=== PATIENT | male | born 1975 ===

== ENCOUNTER 2017-03-01 06:00 | Observation (INO) | payer OTHER ==
[2017-03-01 09:03] LABS: RBC URINE < 1 /hpf (0-3); URINE BACTERIA RARE (<OCC); URINE BILIRUBIN NEGATIVE (NEGATIVE); URINE BLOOD NEGATIVE (NEGATIVE); URINE COLOR Yellow (YELLOW); URINE GLUCOSE (UA) NORMAL (Normal); URINE KETONE TRACE mg/dL (NEGATIVE); URINE LEUKOCYTE ESTERASE NEG Leu/uL (Negative); URINE PROTEIN NEGATIVE (NEGATIVE); WBC URINE < 1 /hpf (0-5)
[2017-03-01 09:40] LABS: BASO # 0.1 K/uL (0.0-0.2); BASO % 1.1 % (0.0-2.0); EOS # 0.2 K/uL (0.0-0.7); EOS % 4.5 % (0.0-4.0); HEMATOCRIT 38.1 % (35.0-51.0); LYMPH # 1.1 K/uL (1.0-4.3); LYMPH % 21.2 % (20.0-40.0); MEAN CELL VOLUME 90.7 fL (80.0-94.0); MEAN CORPUSCULAR HEMOGLOBIN 30.1 pg (27.0-31.0); MEAN CORPUSCULAR HGB CONC 33.2 g/dL (33.0-37.0); MEAN PLATELET VOLUME 8.8 fL (7.2-11.7); MONO # 0.5 K/uL (0.0-0.8); MONO % 9.7 % (0.0-10.0); WHITE BLOOD COUNT 5.3 K/uL (4.8-10.8)
[2017-03-01 09:44] LABS: CHLORIDE 102 mmol/L (98-107); SODIUM 137 mmol/L (132-148)
[2017-03-01 09:45] LABS: POTASSIUM 4.4 mmol/L (3.6-5.2)
[2017-03-01 09:47] LABS: ALKALINE PHOSPHATASE 72 U/L (38-126); AST/SGOT 27 U/L (17-59); BILIRUBIN,TOTAL 0.7 mg/dL (0.2-1.3); BLOOD UREA NITROGEN 14 mg/dL (9-20); CARBON DIOXIDE 27 mmol/L (22-30); GFR AFRICAN-AMERICAN > 60; TOTAL PROTEIN 7.2 g/dL (6.3-8.3)
[2017-03-01 09:48] LABS: ALT/SGPT 39 U/L (21-72); CALCIUM 8.5 mg/dl (8.6-10.4); GLUCOSE,RANDOM 91 mg/dL (75-110)
--- NOTE | 2017-03-01 11:11 | C.PDOC ---
History Of Present Illness Patient is a 41 y/o male, homeless, that presents to the ED for evaluation of redness, and swelling to bilateral lower extremities. Patient states that he didn't get a chance to lay down and elevate his legs for the last 7-8 days. Otherwise, denies any sensory changes, extremity weakness/numbness, fever, chills, or any other associated symptoms at this time. Time Seen by Provider: 03/01/17 07:43 Chief Complaint (Nursing): Lower Extremity Problem/Injury History Per: Patient History/Exam Limitations: no limitations Onset/Duration Of Symptoms: Days Current Symptoms Are (Timing): Still Present Severity: None Pain Scale Rating Of: 0 Recent travel outside of the [place]: No Additional History Per: Patient Past Medical History Reviewed: Historical Data, Nursing Documentation, Vital Signs Vital Signs: Last Vital Signs Temp 98.1 F 03/01/17 15:00 Pulse 83 03/01/17 15:00 Resp 20 03/01/17 15:00 BP 154/83 H 03/01/17 16:30 Pulse Ox 97 03/01/17 15:00 Family History: States: No Known Family Hx - Social History Hx Alcohol Use: No Hx Substance Use: No Review Of Systems Except As Marked, All Systems Reviewed And Found Negative. Constitutional: Negative for: Fever, Chills Cardiovascular: Negative for: Chest Pain, Palpitations Respiratory: Negative for: Shortness of Breath Musculoskeletal: Positive for: Leg Pain (bilateral ) Neurological: Negative for: Weakness, Numbness Physical Exam - Physical Exam Appears: Non-toxic, No Acute Distress Skin: Warm, Dry, Other (erythema to bilateral lower extremities) Head: Atraumatic, Normacephalic Eye(s): bilateral: Normal Inspection, EOMI Neck: Normal ROM, Supple Chest: Symmetrical, No Tenderness Cardiovascular: Rhythm Regular, No Murmur Respiratory: Normal Breath Sounds, No Rales, No Rhonchi, No Wheezing Gastrointestinal/Abdominal: Soft, No Tenderness Extremity: Normal ROM, No Tenderness, Pedal Edema (3+ bilateral), No Calf Tenderness, Capillary Refill (< 2 sec.), No Deformity Pulses: Left Dorsalis Pedis: Normal, Right Dorsalis Pedis: Normal Neurological/Psych: Oriented x3, Normal Speech, Normal Cognition, Normal Motor, Normal Sensation ED Course And Treatment - Laboratory Results Result Diagrams: 03/01/17 09:34 03/01/17 09:34 O2 Sat by Pulse Oximetry: 99 (on RA) Pulse Ox Interpretation: Normal Progress Note: Labs, CXR, venous duplex scan of lower extremities ordered and reviewed. venous duplex was inconclusive due to extreme swelling. Case was d/w Hospitalist who accepted patient M/S for observation. 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 - Scribe Statement The provider has reviewed the documentation as recorded by the Scribe Petrona Cortes All medical record entries made by the Hilaryibgarret were at my direction and personally dictated by me. I have reviewed the chart and agree that the record accurately reflects my personal performance of the history, physical exam, medical decision making, and the department course for this patient. I have also personally directed, reviewed, and agree with the discharge instructions and disposition. Decision To Admit - Pt Status Changed To: Hospital Disposition Of: Observation - . Bed Request Type: Regular Admitting Physician: Lucio Fairbanks Patient Diagnosis: Lower extremity edema
--- NOTE | 2017-03-01 12:17 | RAD ---
PROCEDURE: CHEST RADIOGRAPH, 1 VIEW HISTORY: Lower extremity edema COMPARISON: None available. FINDINGS: LUNGS: Mild venous congestion. Patchy bibasilar airspace opacities. Right hilar prominence. PLEURA: No pneumothorax or pleural fluid seen. CARDIOVASCULAR: Normal. OSSEOUS STRUCTURES: No significant abnormalities. VISUALIZED UPPER ABDOMEN: Normal. OTHER FINDINGS: None. IMPRESSION: Mild venous congestion. Patchy bibasilar airspace opacities. Right hilar prominence.
--- NOTE | 2017-03-01 13:28 | VASCLAB ---
PROCEDURE: Lower Extremity Venous Duplex Exam. HISTORY: Swelling PRIORS: None. TECHNIQUE: Bilateral common femoral, femoral, popliteal and posterior tibial, peroneal and great saphenous veins were evaluated. Flow was assessed with color Doppler, compressibility, assessment of phasic flow and augmentation response. Report prepared by JAIME Eagle FINDINGS: RIGHT: 1. Common Femoral Vein: 1.1. Compressibility - Fully compressible: Thrombus - None : Flow - Phasic: Augmentation -Normal: Reflux - None. 2. Femoral Vein: 2.1. Compressibility - Fully compressible: Thrombus - None : Flow - Phasic: Augmentation -Normal: Reflux - None. 3. Popliteal Vein: 3.1. Compressibility - Fully compressible: Thrombus - None : Flow - Phasic: Augmentation -Normal: Reflux - None. 4. Great Saphenous Vein: 4.1. Compressibility - Fully compressible: Thrombus - None: Flow - Phasic: Augmentation - Normal: Reflux - None. LEFT: 1. Common Femoral Vein: 1.1. Compressibility - Fully compressible: Thrombus - None: Flow - Phasic: Augmentation -Normal: Reflux - None. 2. Femoral Vein: 2.1. Compressibility - Fully compressible: Thrombus - None: Flow - Phasic: Augmentation -Normal: Reflux - None. 3. Popliteal Vein: 3.1. Compressibility - Fully compressible: Thrombus - None : Flow - Phasic: Augmentation -Normal: Reflux - None. 4. Great Saphenous Vein: 4.1. Compressibility - Fully compressible: Thrombus - None: Flow - Phasic: Augmentation - Normal: Reflux - None. OTHER FINDINGS: Technically difficult exam, due to patient large body habitus and extremity swelling. IMPRESSION: Right: No evidence of deep or superficial vein thrombosis of the right lower extremity, for the above mentioned veins. Normal valve function noted of the right side. Left: No evidence of deep or superficial vein thrombosis of the left lower extremity, for the above mentioned veins. Normal valve function noted of the left side.
--- NOTE | 2017-03-01 14:06 | CP.PCM.HP ---
History of Present Illness - History of Present Illness History of Present Illness: CC: "my legs are swollen" HPI: Patient is a 41 year old male with PMHx of morbid obesity who presented to the ED with complaint of 1 week of bilateral lower extremity edema and redness. Patient noticed one week ago that his legs started to become swollen and erythematous. Patient also complains of dry skin and itching of his legs. Per pt the swelling began in both legs at the same time. Patient complains of discomfort in his lower legs due to the swelling but denies pain. Patient states that he is currently homeless and "lost everything" one month ago but patient would not specify what events happened. Per patient, he is living on the streets and has been sitting for the past 8 days. Patient has not been able to lay down or stretch his legs. Patient is normally ambulatory and states that he walks slowly without assistance. Patient has not seen a PMD in many years and does not take any medications. Patient denies history of heart disease or diabetes and states that he has never been hospitalized for this problem in the past. Denies fever, chills, nausea, vomiting, chest pain, shortness of breath, recent illness, cough, calf pain, palpitations, dizziness, headache, change in vision, focal weakness, back pain and recent travel. PMD: none Meds: none PMHx: morbid obesity Surgical Hx: left broken elbow repair (30 years ago) Social Hx: Denies EtOH use; smokes tobacco 1/2 ppd for 25 years; Denies illicit drug use. Currently homeless and unemployed. Family Hx: Reviewed and non-contributory Allergies: No known drug allergies Present on Admission - Present on Admission Any Indicators Present on Admission: No Review of Systems - Constitutional Constitutional: As Per HPI. absent: Chills - EENT Eyes: As Per HPI. absent: Blurred Vision, Change in Vision Ears: As Per HPI. absent: Dizziness Nose/Mouth/Throat: As Per HPI. absent: Sore Throat - Cardiovascular Cardiovascular: As Per HPI, Leg Edema. absent: Chest Pain, Dyspnea, Dyspnea on Exertion, Irregular Heart Rhythm, Lightheadedness, Palpitations - Respiratory Respiratory: As Per HPI. absent: Cough, Dyspnea, Hemoptysis, Chest Congestion - Gastrointestinal Gastrointestinal: As Per HPI. absent: Constipation, Diarrhea, Nausea, Vomiting - Genitourinary Genitourinary: As Per HPI. absent: Difficulty Urinating, Dysuria - Musculoskeletal Musculoskeletal: As Per HPI. absent: Abnormal Gait, Arthralgias, Back Pain, Joint Swelling, Muscle Weakness, Myalgias, Numbness, Tingling - Integumentary Integumentary: As Per HPI, Erythema, Swelling - Neurological Neurological: As Per HPI. absent: Dizziness, Numbness, Headaches, Paresthesias , Weakness - Psychiatric Psychiatric: As Per HPI. absent: Anxiety, Depression - Endocrine Endocrine: As Per HPI. absent: Change in Body Appearance Past Patient History - Past Social History Smoking Status: Light Smoker < 10 Cigarettes Daily - PSYCHIATRIC Hx Substance Use: No - SURGICAL HISTORY Hx Surgeries: Yes Hx Musculoskeletal Surgery: Yes (left arm) Meds Allergies/Adverse Reactions: Allergies Allergy/AdvReac Type Severity Reaction Status Date / Time No Known Allergies Allergy Verified 03/01/17 06:19 Physical Exam - Constitutional Appears: Non-toxic, No Acute Distress - Head Exam Head Exam: ATRAUMATIC, NORMOCEPHALIC - Eye Exam Eye Exam: EOMI, Normal appearance, PERRL Pupil Exam: NORMAL ACCOMODATION - ENT Exam ENT Exam: Mucous Membranes Moist - Neck Exam Neck exam: Positive for: Normal Inspection Additional comments: No JVD - Respiratory Exam Respiratory Exam: Clear to Auscultation Bilateral, Wheezes (mild late expiratory wheeze throughout lung bases ). absent: Rhonchi, Respiratory Distress - Cardiovascular Exam Cardiovascular Exam: REGULAR RHYTHM, +S1, +S2 - GI/Abdominal Exam GI & Abdominal Exam: Normal Bowel Sounds, Soft. absent: Firm, Guarding, Rigid, Tenderness Additional comments: central obesity - Extremities Exam Extremities exam: Positive for: full ROM, pedal edema (Bilateral 1+ pitting edema from ankles to shins), pedal pulses present (difficult to palpate due to swelling and obesity ). Negative for: calf tenderness, tenderness Additional comments: see skin exam - Neurological Exam Neurological exam: Alert, CN II-XII Intact, Oriented x3, Reflexes Normal - Psychiatric Exam Psychiatric exam: Normal Affect, Normal Mood - Skin Skin Exam: Dry, Intact, Warm Additional comments: Bilateral lower extremities- erythematous skin changes from ankle to upper shins and behind calves, skin hot to touch, no open wounds or drainage, skin dry , small domed papule on left lateral luong Results - Vital Signs Recent Vital Signs: Last Vital Signs Temp 98.0 F 07/06/17 09:40 Pulse 81 03/01/17 12:28 Resp 13 03/01/17 12:28 BP 155/94 H 03/01/17 12:28 Pulse Ox 98 03/01/17 12:28 - Labs Result Diagrams: 03/01/17 09:34 03/01/17 09:34 Assessment & Plan - Assessment and Plan (Free Text) Assessment: 1. Venous stasis dermatitis Wound care consulted- will f/u recommendations Apply A&E f/u blood culture No leukocytosis or sign of infection 2. Bilateral LE edema LE Venous dopplers showed no abnormal findings; however, tech was unable to image bilateral calf veins due to swelling. f/u ECHO CXR- Mild venous congestion. Patchy bibasilar airspace opacities. Start Lasix 40mg IV BID Monitor I/Os Motrin 400mg PO q6h prn mild pain 3. Tobacco use Smoking cessation counseling 4. 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
[2017-03-01 16:07] VITALS: RESP 20
[2017-03-01] MEDS: metOLazone 5 MG TAB PO SCH (17:52)
[2017-03-01] MEDS: Vitamins A & D Oint UD Foilpak TOP SCH (17:53)
[2017-03-02] MEDS: metOLazone 5 MG TAB PO SCH ×4 (00:18→17:17)
[2017-03-02 07:46] LABS: BASO % 0.9 % (0.0-2.0); EOS # 0.2 K/uL (0.0-0.7); EOS % 4.8 % (0.0-4.0); HEMATOCRIT 37.7 % (35.0-51.0); LYMPH # 1.2 K/uL (1.0-4.3); MEAN CELL VOLUME 89.4 fL (80.0-94.0); MEAN CORPUSCULAR HEMOGLOBIN 30.2 pg (27.0-31.0); MEAN CORPUSCULAR HGB CONC 33.8 g/dL (33.0-37.0); MEAN PLATELET VOLUME 8.6 fL (7.2-11.7); MONO # 0.4 K/uL (0.0-0.8); MONO % 9.1 % (0.0-10.0); NRBC % 0.1 % (0.0-2.0); RED CELL DISTRIBUTION WIDTH 13.7 % (11.5-14.5); WHITE BLOOD COUNT 4.3 K/uL (4.8-10.8)
[2017-03-02 08:09] LABS: CHLORIDE 101 mmol/L (98-107); POTASSIUM 3.9 mmol/L (3.6-5.2); SODIUM 137 mmol/L (132-148)
[2017-03-02 08:11] LABS: CHOLESTEROL 112 mg/dL (0-199); GFR AFRICAN-AMERICAN > 60
[2017-03-02 08:12] LABS: ALKALINE PHOSPHATASE 69 U/L (38-126); ALT/SGPT 28 U/L (21-72); AST/SGOT 24 U/L (17-59); BILIRUBIN,TOTAL 0.8 mg/dL (0.2-1.3); BLOOD UREA NITROGEN 13 mg/dL (9-20); CARBON DIOXIDE 29 mmol/L (22-30); GLUCOSE,RANDOM 96 mg/dL (75-110); TOTAL PROTEIN 6.8 g/dL (6.3-8.3)
[2017-03-02] MEDS: Vitamins A & D Oint UD Foilpak TOP SCH (11:26)
[2017-03-02] MEDS: Enoxaparin 40 mg Syringe SC SCH (11:26)
[2017-03-02] MEDS: Pantoprazole 40 mg EC Tab PO SCH (11:27)
--- NOTE | 2017-03-02 16:16 | CP.PCM.PN ---
<Faith Youngblood - Last Filed: 03/02/17 19:48> Subjective - Date & Time of Evaluation Date of Evaluation: 03/02/17 Time of Evaluation: 07:45 - Subjective Subjective: PGY1- Medicine Note- Dr. De La Cruz's Service Patient seen and examined at bedside today with the complaint of headaches. Headache is a halfway issue, is intermittent, currently 10/10 pain confined to the forehead and denies seeing flashing lights. Complains of generalized fatigue. Patient is able to urinate, has bowel movements. Denies chest pain, palpitations, shortness of breath, cough, congestion, vision and hearing changes , tinnitus. Denies any other complaints. Objective - Vital Signs/Intake and Output Vital Signs (last 24 hours): Temp Pulse Resp BP Pulse Ox 98.3 F 89 20 150/86 97 03/01/17 23:10 03/01/17 23:10 03/01/17 23:10 03/02/17 08:14 03/01/17 23:10 Intake and Output: 03/02/17 03/02/17 06:59 18:59 Intake Total 300 840 Output Total 400 Balance 300 440 - Medications Medications: Current Medications Enoxaparin Sodium (Lovenox) 40 mg SC DAILY [facility] Last Admin: 03/02/17 11:26 Dose: Not Given Furosemide (Lasix) 40 mg PO Q8H [facility] Last Admin: 03/02/17 08:14 Dose: 40 mg Ibuprofen (Motrin Tab) 400 mg PO Q6H PRN PRN Reason: Pain, Mild (1-3) Last Admin: 03/01/17 22:05 Dose: 400 mg Metolazone (Zaroxolyn) 5 mg PO Q8H [facility] Last Admin: 03/02/17 11:27 Dose: 5 mg Pantoprazole Sodium (Protonix Ec Tab) 40 mg PO DAILY [facility] Last Admin: 03/02/17 11:27 Dose: 40 mg Vitamin A (Vitamin A & D Oint Ud Foilpak) 1 ea TOP BID [facility] Last Admin: 03/02/17 11:26 Dose: 1 ea - Labs Labs: 03/02/17 07:31 03/02/17 07:31 - Constitutional Appears: Well, Non-toxic, No Acute Distress - Head Exam Head Exam: ATRAUMATIC, NORMAL INSPECTION, NORMOCEPHALIC - Eye Exam Eye Exam: EOMI, Normal appearance, PERRL - ENT Exam ENT Exam: Mucous Membranes Moist, Normal Exam - Neck Exam Neck Exam: Full ROM, Normal Inspection. absent: Lymphadenopathy - Respiratory Exam Respiratory Exam: Clear to Ausculation Bilateral, NORMAL BREATHING PATTERN. absent: Rales, Rhonchi, Wheezes, Respiratory Distress, Stridor - Cardiovascular Exam Cardiovascular Exam: REGULAR RHYTHM, RRR. absent: Murmur - GI/Abdominal Exam GI & Abdominal Exam: Soft, Normal Bowel Sounds. absent: Distended, Firm - Extremities Exam Extremities Exam: Full ROM, Pedal Edema. absent: Normal Inspection Additional comments: edematous legs from knee down. erythematous bilaterally. - Back Exam Back Exam: NORMAL INSPECTION. absent: rash noted - Neurological Exam Neurological Exam: Alert, Awake, Oriented x3 - Psychiatric Exam Psychiatric exam: Normal Affect, Normal Mood - Skin Skin Exam: Intact, Warm Additional comments: lower extremity erythema and edema, small domed papule on left lateral luong Assessment and Plan - Assessment and Plan (Free Text) Assessment: 1. Venous Stasis Dermatitis Wound care consulted - will f/u recommendations Apply A&E No leukocytosis or sign of infection. WBC 4.3L f/u blood culture 2. Bilateral Lower Extremity Edema Venous Duplex Scan Lower Extremity Artery Bilaterally[03/01]: Right - No evidence of deep or superficial thrombosis of right lower extremity for common femoral vein, femoral vein. Normal value function noted of right side. Left - No evidence of deep or superficial vein thrombosis of left lower extremity, for common femoral vein, femoral vein, popliteal vein, great saphenous vein. Normal valve function noted on left side CXR [03/01]: Mild venous congestion. Patchy bibasilar airspace opacities. Right hilar prominence. Echocardiogram [03/01]: follow up on results Lasix 40mg IV Q8h Zaroxolyn 5mg PO Q8h Monitor I/Os Motrin 400mg PO q6h prn mild pain 3. Tobacco Use Smoking cessation counseling 4. 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 - Last Filed: 03/06/17 10:38> Objective - Vital Signs/Intake and Output Vital Signs (last 24 hours): Temp Pulse Resp BP Pulse Ox 98.1 F 95 H 20 124/85 95 03/06/17 08:00 03/06/17 08:00 03/06/17 08:00 03/06/17 08:35 03/06/17 08:00 Intake and Output: 03/06/17 03/06/17 06:59 18:59 Intake Total 800 Balance 800 - Medications Medications: Current Medications Calcium Acetate (Phoslo) 667 mg PO BIDCC [facility] Last Admin: 03/06/17 10:02 Dose: Not Given Enoxaparin Sodium (Lovenox) 40 mg SC DAILY [facility] Last Admin: 03/06/17 10:03 Dose: Not Given Furosemide (Lasix) 40 mg PO Q8H [facility] Last Admin: 03/06/17 08:35 Dose: Not Given Ibuprofen (Motrin Tab) 400 mg PO Q6H PRN PRN Reason: Pain, Mild (1-3) Last Admin: 03/01/17 22:05 Dose: 400 mg Metolazone (Zaroxolyn) 5 mg PO Q8H [facility] Last Admin: 03/06/17 09:30 Dose: Not Given Pantoprazole Sodium (Protonix Ec Tab) 40 mg PO DAILY [facility] Last Admin: 03/06/17 10:05 Dose: Not Given Potassium Chloride (K-Dur 20 Meq Er Tab) 20 meq PO DAILY [facility] Last Admin: 03/06/17 10:06 Dose: Not Given Vitamin A (Vitamin A & D Oint Ud Foilpak) 1 ea TOP BID [facility] Last Admin: 03/06/17 10:00 Dose: 1 ea - Labs Labs: 03/05/17 07:11 03/05/17 07:11 Attending/Attestation - Attestation I have personally seen and examined this patient.: Yes I have fully participated in the care of the patient.: Yes I have reviewed all pertinent clinical information, including history, physical exam and plan: Yes Notes (Text): 03/06/17 10:38 Agree with resident note and findings
--- NOTE | 2017-03-02 16:27 | CARD ---
APPROVED REPORT EXAM: Two-dimensional and M-mode echocardiogram with Doppler and color Doppler. Other Information Quality : GoodRhythm : NSR RISK FACTORS Obesity M-Mode DIMENSIONS RVDd1.65 (2.1-3.2cm)Left Atrium (MM)4.25 (2.5-4.0cm) IVSd1.21 (0.7-1.1cm)Aortic Root3.60 (2.2-3.7cm) LVDd5.94 (4.0-5.6cm)Aortic Cusp Exc.1.21 (1.5-2.0cm) PWd1.21 (0.7-1.1cm)FS (%) 36 % LVDs3.77 (2.0-3.8cm)LVEF (%)65 (>50%) Mitral Valve MV E Vklmwike01.9cm/sMV A Ucnbvtei47.9cm/sE/A ratio1.3 TDI E/Lateral E'0.0E/Medial E'0.0 Tricuspid Valve TR Peak [id number]/sTR Peak [id number] LEFT VENTRICLE The left ventricle is normal size. There is normal left ventricular wall thickness. The left ventricular function is normal. The left ventricular ejection fraction is within the normal range. There is normal LV segmental wall motion. The left ventricular diastolic function is normal. RIGHT VENTRICLE The right ventricle is normal size. There is normal right ventricular wall thickness. Systolic function is mildly reduced. ATRIA The left atrium is borderline dilated. The right atrium size is normal. The right atrium is borderline dilated. AORTIC VALVE The aortic valve is normal in structure. No aortic regurgitation is present. MITRAL VALVE The mitral valve is normal in structure. GREAT VESSELS The aortic root is normal in size. <Conclusion> Poor Echo window The left ventricle is normal size. There is normal left ventricular wall thickness. The left ventricular function is normal. The left ventricular ejection fraction is within the normal range. There is normal LV segmental wall motion. The left ventricular diastolic function is normal.
[2017-03-03] MEDS: Vitamins A & D Oint UD Foilpak TOP SCH ×2 (09:42→18:12)
[2017-03-03] MEDS: Enoxaparin 40 mg Syringe SC SCH (09:43)
[2017-03-03] MEDS: Pantoprazole 40 mg EC Tab PO SCH (09:44)
[2017-03-03] MEDS: metOLazone 5 MG TAB PO SCH ×2 (09:46→17:30)
--- NOTE | 2017-03-03 14:26 | CP.PCM.PN ---
<Faith Youngblood - Last Filed: 03/03/17 18:44> Subjective - Date & Time of Evaluation Date of Evaluation: 03/03/17 Time of Evaluation: 07:30 - Subjective Subjective: PGY1- Medicine Note- Dr. De La Cruz's Service Patient is seen and examined at bedside and in no acute distress. Patient complains of some cramping in both legs. Patient is able to urinate, has normal bowel movements. Denies chest pain, palpitations, shortness of breath, cough, congestion, vision and hearing changes, tinnitus. Denies any other complaints. Objective - Vital Signs/Intake and Output Vital Signs (last 24 hours): Temp Pulse Resp BP Pulse Ox 98.1 F 74 20 126/72 95 03/03/17 00:13 03/03/17 00:13 03/03/17 00:13 03/03/17 08:30 03/03/17 00:13 - Medications Medications: Current Medications Enoxaparin Sodium (Lovenox) 40 mg SC DAILY [facility] Last Admin: 03/03/17 09:43 Dose: 40 mg Furosemide (Lasix) 40 mg PO Q8H [facility] Last Admin: 03/03/17 08:30 Dose: 40 mg Ibuprofen (Motrin Tab) 400 mg PO Q6H PRN PRN Reason: Pain, Mild (1-3) Last Admin: 03/01/17 22:05 Dose: 400 mg Metolazone (Zaroxolyn) 5 mg PO Q8H [facility] Last Admin: 03/03/17 09:46 Dose: 5 mg Pantoprazole Sodium (Protonix Ec Tab) 40 mg PO DAILY [facility] Last Admin: 03/03/17 09:44 Dose: 40 mg Vitamin A (Vitamin A & D Oint Ud Foilpak) 1 ea TOP BID [facility] Last Admin: 03/03/17 09:42 Dose: 1 ea - Constitutional Appears: Well, Non-toxic, No Acute Distress - Head Exam Head Exam: ATRAUMATIC, NORMAL INSPECTION, NORMOCEPHALIC - Eye Exam Eye Exam: EOMI, Normal appearance, PERRL - ENT Exam ENT Exam: Mucous Membranes Moist, Normal Exam - Neck Exam Neck Exam: Full ROM, Normal Inspection. absent: Lymphadenopathy - Respiratory Exam Respiratory Exam: Clear to Ausculation Bilateral, NORMAL BREATHING PATTERN. absent: Rales, Rhonchi, Wheezes, Respiratory Distress, Stridor - Cardiovascular Exam Cardiovascular Exam: REGULAR RHYTHM, RRR, +S1, +S2. absent: Murmur - GI/Abdominal Exam GI & Abdominal Exam: Soft, Normal Bowel Sounds. absent: Distended, Firm, Guarding, Rigid, Tenderness - Extremities Exam Extremities Exam: Pedal Edema. absent: Normal Inspection Additional comments: edema from knee down is decreasing - Back Exam Back Exam: NORMAL INSPECTION - Neurological Exam Neurological Exam: Alert, Awake, Oriented x3 - Psychiatric Exam Psychiatric exam: Normal Affect, Normal Mood - Skin Skin Exam: Erythema, Intact, Warm Additional comments: erythematous lower extremities, b/l edema of legs from knees down Assessment and Plan - Assessment and Plan (Free Text) Assessment: 1. Venous Stasis Dermatitis Wound care consulted - will f/u recommendations Apply A&E No leukocytosis or sign of infection. WBC 4.3L f/u blood culture - pending, no growth after 24 hours 2. Bilateral Lower Extremity Edema Venous Duplex Scan Lower Extremity Artery Bilaterally[03/01]: Right - No evidence of deep or superficial thrombosis of right lower extremity for common femoral vein, femoral vein. Normal value function noted of right side. Left - No evidence of deep or superficial vein thrombosis of left lower extremity, for common femoral vein, femoral vein, popliteal vein, great saphenous vein. Normal valve function noted on left side CXR [03/01]: Mild venous congestion. Patchy bibasilar airspace opacities. Right hilar prominence. Echocardiogram [03/01]: normal size and left ventricular function, normal ejection fraction Lasix 40mg IV Q8h Zaroxolyn 5mg PO Q8h Monitor I/Os Motrin 400mg PO q6h prn mild pain Patient was 494 lbs on 03/01, 480 lbs on 03/03 3. Hyperphosphatemia Phoslo 667mg BIDCC monitor phosphorous 3. Tobacco Use Smoking cessation counseling 4. 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 - Last Filed: 03/06/17 10:42> Objective - Vital Signs/Intake and Output Vital Signs (last 24 hours): Temp Pulse Resp BP Pulse Ox 98.1 F 95 H 20 124/85 95 03/06/17 08:00 03/06/17 08:00 03/06/17 08:00 03/06/17 08:35 03/06/17 08:00 Intake and Output: 03/06/17 03/06/17 06:59 18:59 Intake Total 800 Balance 800 - Medications Medications: Current Medications Calcium Acetate (Phoslo) 667 mg PO BIDCC [facility] Last Admin: 03/06/17 10:02 Dose: Not Given Enoxaparin Sodium (Lovenox) 40 mg SC DAILY [facility] Last Admin: 03/06/17 10:03 Dose: Not Given Furosemide (Lasix) 40 mg PO Q8H [facility] Last Admin: 03/06/17 08:35 Dose: Not Given Ibuprofen (Motrin Tab) 400 mg PO Q6H PRN PRN Reason: Pain, Mild (1-3) Last Admin: 03/01/17 22:05 Dose: 400 mg Metolazone (Zaroxolyn) 5 mg PO Q8H [facility] Last Admin: 03/06/17 09:30 Dose: Not Given Pantoprazole Sodium (Protonix Ec Tab) 40 mg PO DAILY [facility] Last Admin: 03/06/17 10:05 Dose: Not Given Potassium Chloride (K-Dur 20 Meq Er Tab) 20 meq PO DAILY [facility] Last Admin: 03/06/17 10:06 Dose: Not Given Vitamin A (Vitamin A & D Oint Ud Foilpak) 1 ea TOP BID [facility] Last Admin: 03/06/17 10:00 Dose: 1 ea - Labs Labs: 03/05/17 07:11 03/05/17 07:11 Attending/Attestation - Attestation I have personally seen and examined this patient.: Yes I have fully participated in the care of the patient.: Yes I have reviewed all pertinent clinical information, including history, physical exam and plan: Yes Notes (Text): 03/06/17 10:42 Agree with resident note and findings
[2017-03-03 17:08] LABS: BASO % 0.7 % (0.0-2.0); EOS # 0.2 K/uL (0.0-0.7); EOS % 3.1 % (0.0-4.0); HEMATOCRIT 44.2 % (35.0-51.0); LYMPH # 1.3 K/uL (1.0-4.3); LYMPH % 27.6 % (20.0-40.0); MEAN CELL VOLUME 89.5 fL (80.0-94.0); MEAN CORPUSCULAR HEMOGLOBIN 29.8 pg (27.0-31.0); MEAN CORPUSCULAR HGB CONC 33.3 g/dL (33.0-37.0); MEAN PLATELET VOLUME 8.7 fL (7.2-11.7); MONO # 0.5 K/uL (0.0-0.8); MONO % 9.5 % (0.0-10.0); RED CELL DISTRIBUTION WIDTH 13.3 % (11.5-14.5); WHITE BLOOD COUNT 4.9 K/uL (4.8-10.8)
[2017-03-03 17:18] LABS: CHLORIDE 92 mmol/L (98-107)
[2017-03-03 17:19] LABS: POTASSIUM 3.8 mmol/L (3.6-5.2); SODIUM 138 mmol/L (132-148)
[2017-03-03 17:21] LABS: BILIRUBIN,TOTAL 0.7 mg/dL (0.2-1.3); CARBON DIOXIDE 36 mmol/L (22-30); GFR AFRICAN-AMERICAN > 60
[2017-03-03 17:22] LABS: ALKALINE PHOSPHATASE 74 U/L (38-126); ALT/SGPT 34 U/L (21-72); AST/SGOT 28 U/L (17-59); BLOOD UREA NITROGEN 19 mg/dL (9-20); CALCIUM 9.8 mg/dl (8.6-10.4); GLUCOSE,RANDOM 98 mg/dL (75-110); MAGNESIUM 1.7 mg/dL (1.6-2.3); PHOSPHOROUS 6.3 mg/dL (2.5-4.5); TOTAL PROTEIN 7.9 g/dL (6.3-8.3)
[2017-03-04] MEDS: metOLazone 5 MG TAB PO SCH ×3 (02:26→18:55)
[2017-03-04 07:53] LABS: BASO # 0.1 K/uL (0.0-0.2); BASO % 1.1 % (0.0-2.0); EOS # 0.1 K/uL (0.0-0.7); EOS % 2.4 % (0.0-4.0); HEMATOCRIT 48.8 % (35.0-51.0); LYMPH # 1.2 K/uL (1.0-4.3); LYMPH % 23.1 % (20.0-40.0); MEAN CORPUSCULAR HEMOGLOBIN 29.7 pg (27.0-31.0); MEAN CORPUSCULAR HGB CONC 33.3 g/dL (33.0-37.0); MEAN PLATELET VOLUME 8.8 fL (7.2-11.7); MONO # 0.4 K/uL (0.0-0.8); NRBC % 0.2 % (0.0-2.0); RED CELL DISTRIBUTION WIDTH 13.5 % (11.5-14.5); WHITE BLOOD COUNT 5.2 K/uL (4.8-10.8)
[2017-03-04 08:05] LABS: CHLORIDE 89 mmol/L (98-107); SODIUM 136 mmol/L (132-148)
[2017-03-04 08:06] LABS: POTASSIUM 3.6 mmol/L (3.6-5.2)
[2017-03-04 08:07] LABS: GFR AFRICAN-AMERICAN > 60
[2017-03-04 08:08] LABS: ALKALINE PHOSPHATASE 91 U/L (38-126); ALT/SGPT 37 U/L (21-72); AST/SGOT 35 U/L (17-59); BILIRUBIN,TOTAL 0.9 mg/dL (0.2-1.3); BLOOD UREA NITROGEN 20 mg/dL (9-20); CARBON DIOXIDE 36 mmol/L (22-30); GLUCOSE,RANDOM 107 mg/dL (75-110); TOTAL PROTEIN 8.7 g/dL (6.3-8.3)
[2017-03-04 08:09] LABS: CALCIUM 9.8 mg/dl (8.6-10.4); MAGNESIUM 1.9 mg/dL (1.6-2.3); PHOSPHOROUS 5.3 mg/dL (2.5-4.5)
[2017-03-04] MEDS: Vitamins A & D Oint UD Foilpak TOP SCH ×2 (09:01→18:00)
[2017-03-04] MEDS: Pantoprazole 40 mg EC Tab PO SCH (09:04)
[2017-03-04] MEDS: Enoxaparin 40 mg Syringe SC SCH (09:05)
--- NOTE | 2017-03-04 12:38 | CP.PCM.PN ---
<Faith Youngblood - Last Filed: 03/04/17 20:36> Subjective - Date & Time of Evaluation Date of Evaluation: 03/04/17 Time of Evaluation: 07:40 - Subjective Subjective: PGY1- Medicine Note- Dr. De La Cruz's Service Patient is seen and examined at bedside and in no acute distress. Patient was sleeping and awoken. Patient complains of pain in both legs. Patient is able to urinate, has normal bowel movements. Denies chest pain, palpitations, shortness of breath, cough, congestion, vision and hearing changes, tinnitus. Denies any other complaints. Objective - Vital Signs/Intake and Output Vital Signs (last 24 hours): Temp Pulse Resp BP Pulse Ox 97.8 F 78 20 115/63 95 03/04/17 08:00 03/04/17 08:00 03/04/17 08:00 03/04/17 08:26 03/04/17 08:00 Intake and Output: 03/04/17 03/04/17 06:59 18:59 Intake Total 1080 Output Total 400 Balance 680 - Medications Medications: Current Medic[facility] Admin: 03/04/17 08:26 Dose: 667 mg Enoxaparin Sodium (Lovenox) 40 mg SC DAILY [facility] Last Admin: 03/04/17 09:05 Dose: 40 mg Furosemide (Lasix) 40 mg PO Q8H [facility] Last Admin: 03/04/17 08:26 Dose: 40 mg Ibuprofen (Motrin Tab) 400 mg PO Q6H PRN PRN Reason: Pain, Mild (1-3) Last Admin: 03/01/17 22:05 Dose: 400 mg Metolazone (Zaroxolyn) 5 mg PO Q8H [facility] Last Admin: 03/04/17 09:05 Dose: 5 mg Pantoprazole Sodium (Protonix Ec Tab) 40 mg PO DAILY [facility] Last Admin: 03/04/17 09:04 Dose: 40 mg Vitamin A (Vitamin A & D Oint Ud Foilpak) 1 ea TOP BID [facility] Last Admin: 03/03/17 18:12 Dose: 1 ea - Labs Labs: 03/04/17 07:40 03/04/17 07:40 - Constitutional Appears: Well, Non-toxic, No Acute Distress - Head Exam Head Exam: ATRAUMATIC, NORMAL INSPECTION, NORMOCEPHALIC - Eye Exam Eye Exam: EOMI, Normal appearance, PERRL - ENT Exam ENT Exam: Mucous Membranes Moist, Normal Exam - Neck Exam Neck Exam: Full ROM, Normal Inspection. absent: Lymphadenopathy - Respiratory Exam Respiratory Exam: Clear to Ausculation Bilateral, NORMAL BREATHING PATTERN. absent: Rales, Rhonchi, Wheezes, Respiratory Distress, Stridor - Cardiovascular Exam Cardiovascular Exam: REGULAR RHYTHM, RRR, +S1, +S2. absent: Rubs, Murmur - GI/Abdominal Exam GI & Abdominal Exam: Soft, Normal Bowel Sounds. absent: Distended, Firm, Guarding, Rigid, Tenderness - Extremities Exam Extremities Exam: Full ROM, Pedal Edema, Tenderness Additional comments: lower extremity edema decreasing legs tender to the touch - Back Exam Back Exam: NORMAL INSPECTION. absent: rash noted - Neurological Exam Neurological Exam: Alert, Awake, Oriented x3 - Psychiatric Exam Psychiatric exam: Normal Affect, Normal Mood - Skin Skin Exam: Intact, Warm Additional comments: erythema on lower legs decreasing Assessment and Plan - Assessment and Plan (Free Text) Assessment: 1. Venous Stasis Dermatitis Wound care consulted - will f/u recommendations Apply A&E No leukocytosis or sign of infection. WBC 4.3L f/u blood culture - pending, no growth after 24 hours 2. Bilateral Lower Extremity Edema Venous Duplex Scan Lower Extremity Artery Bilaterally[03/01]: Right - No evidence of deep or superficial thrombosis of right lower extremity for common femoral vein, femoral vein. Normal value function noted of right side. Left - No evidence of deep or superficial vein thrombosis of left lower extremity, for common femoral vein, femoral vein, popliteal vein, great saphenous vein. Normal valve function noted on left side CXR [03/01]: Mild venous congestion. Patchy bibasilar airspace opacities. Right hilar prominence. Echocardiogram [03/01]: normal size and left ventricular function, normal ejection fraction Lasix 40mg IV Q8h Zaroxolyn 5mg PO Q8h Monitor I/Os Motrin 400mg PO q6h prn mild pain Patient was 494 lbs on 03/01, 480 lbs on 03/03 3. Hyperphosphatemia Phoslo 667mg BIDCC monitor phosphorous decreased from 6.3 to 5.3 on 03/04 3. Tobacco Use Smoking cessation counseling 4. 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 - Last Filed: 03/06/17 10:46> Objective - Vital Signs/Intake and Output Vital Signs (last 24 hours): Temp Pulse Resp BP Pulse Ox 98.1 F 95 H 20 124/85 95 03/06/17 08:00 03/06/17 08:00 03/06/17 08:00 03/06/17 08:35 03/06/17 08:00 Intake and Output: 03/06/17 03/06/17 06:59 18:59 Intake Total 800 Balance 800 - Medications Medications: Current Medications Calcium Acetate (Phoslo) 667 mg PO BIDCC [facility] Last Admin: 03/06/17 10:02 Dose: Not Given Enoxaparin Sodium (Lovenox) 40 mg SC DAILY [facility] Last Admin: 03/06/17 10:03 Dose: Not Given Furosemide (Lasix) 40 mg PO Q8H [facility] Last Admin: 03/06/17 08:35 Dose: Not Given Ibuprofen (Motrin Tab) 400 mg PO Q6H PRN PRN Reason: Pain, Mild (1-3) Last Admin: 03/01/17 22:05 Dose: 400 mg Metolazone (Zaroxolyn) 5 mg PO Q8H [facility] Last Admin: 03/06/17 09:30 Dose: Not Given Pantoprazole Sodium (Protonix Ec Tab) 40 mg PO DAILY [facility] Last Admin: 03/06/17 10:05 Dose: Not Given Potassium Chloride (K-Dur 20 Meq Er Tab) 20 meq PO DAILY [facility] Last Admin: 03/06/17 10:06 Dose: Not Given Vitamin A (Vitamin A & D Oint Ud Foilpak) 1 ea TOP BID [facility] Last Admin: 03/06/17 10:00 Dose: 1 ea - Labs Labs: 03/05/17 07:11 03/05/17 07:11 Attending/Attestation - Attestation I have personally seen and examined this patient.: Yes I have fully participated in the care of the patient.: Yes I have reviewed all pertinent clinical information, including history, physical exam and plan: Yes Notes (Text): 03/06/17 10:46 Agree with resident note and findings
[2017-03-05] MEDS: metOLazone 5 MG TAB PO SCH ×3 (01:04→17:31)
[2017-03-05 07:58] LABS: CHLORIDE 89 mmol/L (98-107); POTASSIUM 3.2 mmol/L (3.6-5.2); SODIUM 135 mmol/L (132-148)
[2017-03-05 08:00] LABS: AST/SGOT 36 U/L (17-59); BILIRUBIN,TOTAL 0.9 mg/dL (0.2-1.3); CARBON DIOXIDE 35 mmol/L (22-30); GFR AFRICAN-AMERICAN > 60
[2017-03-05 08:01] LABS: ALKALINE PHOSPHATASE 83 U/L (38-126); ALT/SGPT 53 U/L (21-72); BLOOD UREA NITROGEN 29 mg/dL (9-20); CALCIUM 9.6 mg/dl (8.6-10.4); GLUCOSE,RANDOM 114 mg/dL (75-110); PHOSPHOROUS 5.1 mg/dL (2.5-4.5); TOTAL PROTEIN 8.1 g/dL (6.3-8.3)
[2017-03-05 08:21] LABS: BASO % 0.8 % (0.0-2.0); EOS # 0.1 K/uL (0.0-0.7); EOS % 2.7 % (0.0-4.0); HEMATOCRIT 48.8 % (35.0-51.0); LYMPH # 1.5 K/uL (1.0-4.3); LYMPH % 27.5 % (20.0-40.0); MEAN CELL VOLUME 89.3 fL (80.0-94.0); MEAN CORPUSCULAR HEMOGLOBIN 30.3 pg (27.0-31.0); MEAN PLATELET VOLUME 9.1 fL (7.2-11.7); MONO # 0.5 K/uL (0.0-0.8); MONO % 9.9 % (0.0-10.0); RED CELL DISTRIBUTION WIDTH 13.5 % (11.5-14.5); WHITE BLOOD COUNT 5.4 K/uL (4.8-10.8)
[2017-03-05] MEDS ORDERED: Potassium Chloride 20 mEq ER Tab PO ONE ×2 (09:17→11:01)
[2017-03-05] MEDS: Pantoprazole 40 mg EC Tab PO SCH (10:30)
[2017-03-05] MEDS: Enoxaparin 40 mg Syringe SC SCH (10:30)
[2017-03-05] MEDS: Vitamins A & D Oint UD Foilpak TOP SCH ×2 (10:30→17:31)
[2017-03-05] MEDS ORDERED: Potassium Chloride 20 mEq ER Tab PO SCH (11:00)
--- NOTE | 2017-03-05 19:06 | CP.PCM.PN ---
<Faith Youngblood - Last Filed: 03/05/17 19:04> Subjective - Date & Time of Evaluation Date of Evaluation: 03/05/17 Time of Evaluation: 07:00 - Subjective Subjective: PGY1 - medicine note- Dr. De La Cruz's Service Patient was seen today at bedside in no acute distress. No overnight events. Complains of "empty" feeling in bilateral lower extremities, tenderness to palpation of bilateral calves. Admits fatigue, drowsiness, dizziness, and difficulty walking. Denied chest pain, palpitations, SOB, headache, blurry vision, dysphagia. Morning weight via bed scale is 449.7 vs 494 lbs on 03/01 Objective - Vital Signs/Intake and Output Vital Signs (last 24 hours): Temp Pulse Resp BP Pulse Ox 97.9 F 87 20 141/74 96 03/05/17 08:05 03/05/17 08:05 03/05/17 08:05 03/05/17 17:00 03/05/17 08:05 Intake and Output: 03/05/17 03/06/17 18:59 06:59 Intake Total 600 Balance 600 - Medications Medications: Current Medications Calcium Acetate (Phoslo) 667 mg PO BIDCC [facility] Last Admin: 03/05/17 17:31 Dose: 667 mg Enoxaparin Sodium (Lovenox) 40 mg SC DAILY [facility] Last Admin: 03/05/17 10:30 Dose: 40 mg Furosemide (Lasix) 40 mg PO Q8H [facility] Last Admin: 03/05/17 17:00 Dose: 40 mg Ibuprofen (Motrin Tab) 400 mg PO Q6H PRN PRN Reason: Pain, Mild (1-3) Last Admin: 03/01/17 22:05 Dose: 400 mg Metolazone (Zaroxolyn) 5 mg PO Q8H [facility] Last Admin: 03/05/17 17:31 Dose: 5 mg Pantoprazole Sodium (Protonix Ec Tab) 40 mg PO DAILY [facility] Last Admin: 03/05/17 10:30 Dose: 40 mg Vitamin A (Vitamin A & D Oint Ud Foilpak) 1 ea TOP BID [facility] Last Admin: 03/05/17 17:31 Dose: 1 ea - Labs Labs: 03/05/17 07:11 03/05/17 07:11 - Constitutional Appears: Well, Non-toxic, No Acute Distress - Head Exam Head Exam: ATRAUMATIC, NORMAL INSPECTION, NORMOCEPHALIC - Eye Exam Eye Exam: EOMI, Normal appearance, PERRL - ENT Exam ENT Exam: Mucous Membranes Moist, Normal Exam - Neck Exam Neck Exam: Full ROM, Normal Inspection. absent: Lymphadenopathy - Respiratory Exam Respiratory Exam: Clear to Ausculation Bilateral, NORMAL BREATHING PATTERN. absent: Rales, Rhonchi, Wheezes, Respiratory Distress, Stridor - Cardiovascular Exam Cardiovascular Exam: REGULAR RHYTHM, RRR. absent: Gallop, Rubs, Murmur - GI/Abdominal Exam GI & Abdominal Exam: Soft, Normal Bowel Sounds. absent: Firm, Guarding, Rigid - Extremities Exam Extremities Exam: Normal Inspection, Pedal Edema, Tenderness Additional comments: swelling in legs bilaterally decreasing erythema decreasing - Back Exam Back Exam: NORMAL INSPECTION - Neurological Exam Neurological Exam: Alert, Awake, Oriented x3 - Psychiatric Exam Psychiatric exam: Normal Affect, Normal Mood - Skin Skin Exam: Erythema, Warm Additional comments: bilateral edematous legs Assessment and Plan - Assessment and Plan (Free Text) Assessment: 1. Venous Stasis Dermatitis Wound care consulted Apply A&E No leukocytosis or sign of infection. WBC 4.3L f/u blood culture - pending, no growth after 24 hours 2. Bilateral Lower Extremity Edema Edema decreasing, patient has lost 44.3 lbs in 5 days and feels unsteady on his feet Venous Duplex Scan Lower Extremity Artery Bilaterally[03/01]: Right - No evidence of deep or superficial thrombosis of right lower extremity for common femoral vein, femoral vein. Normal value function noted of right side. Left - No evidence of deep or superficial vein thrombosis of left lower extremity, for common femoral vein, femoral vein, popliteal vein, great saphenous vein. Normal valve function noted on left side CXR [03/01]: Mild venous congestion. Patchy bibasilar airspace opacities. Right hilar prominence. Echocardiogram [03/01]: normal size and left ventricular function, normal ejection fraction Lasix 40mg IV Q8h Zaroxolyn 5mg PO Q8h Monitor I/Os Motrin 400mg PO q6h prn mild pain Patient was 494 lbs on 03/01, 480 lbs on 03/03 3. Hyperphosphatemia Phoslo 667mg BIDCC monitor phosphorous decreased from 6.3 to 5.3 to 5.1 on 03/05 4. Hypokalemia 03/05: 3.2, KDUR 40 given KDUR 20 daily 5. Tobacco Use Smoking cessation counseling 6. 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 - Last Filed: 03/06/17 10:50> Objective - Vital Signs/Intake and Output Vital Signs (last 24 hours): Temp Pulse Resp BP Pulse Ox 98.1 F 95 H 20 124/85 95 03/06/17 08:00 03/06/17 08:00 03/06/17 08:00 03/06/17 08:35 03/06/17 08:00 Intake and Output: 03/06/17 03/06/17 06:59 18:59 Intake Total 800 Balance 800 - Medications Medications: Current Medications Calcium Acetate (Phoslo) 667 mg PO BIDCC [facility] Last Admin: 03/06/17 10:02 Dose: Not Given Enoxaparin Sodium (Lovenox) 40 mg SC DAILY [facility] Last Admin: 03/06/17 10:03 Dose: Not Given Furosemide (Lasix) 40 mg PO Q8H [facility] Last Admin: 03/06/17 08:35 Dose: Not Given Ibuprofen (Motrin Tab) 400 mg PO Q6H PRN PRN Reason: Pain, Mild (1-3) Last Admin: 03/01/17 22:05 Dose: 400 mg Metolazone (Zaroxolyn) 5 mg PO Q8H [facility] Last Admin: 03/06/17 09:30 Dose: Not Given Pantoprazole Sodium (Protonix Ec Tab) 40 mg PO DAILY [facility] Last Admin: 03/06/17 10:05 Dose: Not Given Potassium Chloride (K-Dur 20 Meq Er Tab) 20 meq PO DAILY [facility] Last Admin: 03/06/17 10:06 Dose: Not Given Vitamin A (Vitamin A & D Oint Ud Foilpak) 1 ea TOP BID [facility] Last Admin: 03/06/17 10:00 Dose: 1 ea - Labs Labs: 03/05/17 07:11 03/05/17 07:11 Attending/Attestation - Attestation I have personally seen and examined this patient.: Yes I have fully participated in the care of the patient.: Yes I have reviewed all pertinent clinical information, including history, physical exam and plan: Yes Notes (Text): 03/06/17 10:50 Agree with resident note and findings
[2017-03-06 08:32] VITALS: BP 124/85; PULSE 95; TEMP 98.1; O2SAT 95
[2017-03-06] MEDS: metOLazone 5 MG TAB PO SCH (09:30)
[2017-03-06] MEDS: Pantoprazole 40 mg EC Tab PO SCH ×2 (10:00→10:05)
[2017-03-06] MEDS: Potassium Chloride 20 mEq ER Tab PO SCH ×2 (10:00→10:06)
[2017-03-06] MEDS: Vitamins A & D Oint UD Foilpak TOP SCH (10:00)
[2017-03-06] MEDS: Enoxaparin 40 mg Syringe SC SCH (10:03)
--- NOTE | 2017-03-06 15:48 | CP.PCM.DIS ---
Provider - Provider Date of Admission: 03/02/17 19:50 Attending physician: Carson De La Cruz Jr, MD Consults: Dr. De La Cruz Time Spent in preparation of Discharge (in minutes): 45 Diagnosis - Discharge Diagnosis (1) Lower extremity edema Status: Resolved Comment: please see summary for details Hospital Course - Lab Results Lab Results: Most Recent Lab Values WBC 5.4 K/uL (4.8-10.8) 03/05/17 07:11 RBC 5.46 Mil/uL (4.40-5.90) 03/05/17 07:11 Hgb 16.6 g/dL (12.0-18.0) 03/05/17 07:11 Hct 48.8 % (35.0-51.0) 03/05/17 07:11 MCV 89.3 fL (80.0-94.0) 03/05/17 07:11 MCH 30.3 pg (27.0-31.0) 03/05/17 07:11 MCHC 34.0 g/dL (33.0-37.0) 03/05/17 07:11 RDW 13.5 % (11.5-14.5) 03/05/17 07:11 Plt Count 305 K/uL (130-400) 03/05/17 07:11 MPV 9.1 fL (7.2-11.7) 03/05/17 07:11 Neut % (Auto) 59.1 % (50.0-75.0) 03/05/17 07:11 Lymph % (Auto) 27.5 % (20.0-40.0) 03/05/17 07:11 [place] % (Auto) 9.9 % (0.0-10.0) 03/05/17 07:11 Eos % (Auto) 2.7 % (0.0-4.0) 03/05/17 07:11 Baso % (Auto) 0.8 % (0.0-2.0) 03/05/17 07:11 Neut # 3.2 K/uL (1.8-7.0) 03/05/17 07:11 Lymph # 1.5 K/uL (1.0-4.3) 03/05/17 07:11 [place] # 0.5 K/uL (0.0-0.8) 03/05/17 07:11 Eos # 0.1 K/uL (0.0-0.7) 03/05/17 07:11 Baso # 0.0 K/uL (0.0-0.2) 03/05/17 07:11 Sodium 135 mmol/L (132-148) 03/05/17 07:11 Potassium 3.2 mmol/L (3.6-5.2) L 03/05/17 07:11 Chloride 89 mmol/L (98-107) L 03/05/17 07:11 Carbon Dioxide 35 mmol/L (22-30) H 03/05/17 07:11 Anion Gap 14 (10-20) 03/05/17 07:11 BUN 29 mg/dL (9-20) H 03/05/17 07:11 Creatinine 1.2 MG/DL (0.8-1.5) 03/05/17 07:11 Est GFR ( Amer) > 60 03/05/17 07:11 Est GFR (Non-Af Amer) > 60 03/05/17 07:11 Random Glucose 114 mg/dL (75-110) H 03/05/17 07:11 Calcium 9.6 mg/dl (8.6-10.4) 03/05/17 07:11 Phosphorus 5.1 mg/dL (2.5-4.5) H 03/05/17 07:11 Magnesium 2.0 mg/dL (1.6-2.3) 03/05/17 07:11 Total Bilirubin 0.9 mg/dL (0.2-1.3) 03/05/17 07:11 AST 36 U/L (17-59) 03/05/17 07:11 ALT 53 U/L (21-72) 03/05/17 07:11 Alkaline Phosphatase 83 U/L (38-126) 03/05/17 07:11 Total Protein 8.1 g/dL (6.3-8.3) 03/05/17 07:11 Albumin 4.1 g/dL (3.5-5.0) 03/05/17 07:11 Globulin 4.0 gm/dL (2.2-3.9) H 03/05/17 07:11 Albumin/Globulin Ratio 1.0 (1.0-2.1) 03/05/17 07:11 Triglycerides 67 mg/dL (0-149) 03/02/17 07:31 Cholesterol 112 mg/dL (0-199) 03/02/17 07:31 LDL Cholesterol Direct 63 mg/dL (0-129) 03/02/17 07:31 HDL Cholesterol 32 mg/dL (30-70) 03/02/17 07:31 Urine Color Yellow (YELLOW) 03/01/17 08:55 Urine Clarity Clear (Clear) 03/01/17 08:55 Urine pH 6.0 (5.0-8.0) 03/01/17 08:55 Ur Specific [place] 1.023 (1.003-1.030) 03/01/17 08:55 Urine Protein Negative mg/dL (NEGATIVE) 03/01/17 08:55 Urine Glucose (UA) Normal mg/dL (Normal) 03/01/17 08:55 Urine Ketones Trace mg/dL (NEGATIVE) 03/01/17 08:55 Urine Blood Negative (NEGATIVE) 03/01/17 08:55 Urine Nitrate Negative (NEGATIVE) 03/01/17 08:55 Urine Bilirubin Negative (NEGATIVE) 03/01/17 08:55 Urine Urobilinogen 4.0 mg/dL (0.2-1.0) 03/01/17 08:55 Ur Leukocyte Esterase Neg Jovon/uL (Negative) 03/01/17 08:55 Urine WBC (Auto) < 1 /hpf (0-5) 03/01/17 08:55 Urine RBC (Auto) < 1 /hpf (0-3) 03/01/17 08:55 Ur Squamous Epith Cells < 1 /hpf (0-5) 03/01/17 08:55 Urine Bacteria Rare (<OCC) 03/01/17 08:55 - Hospital Course Hospital Course: cc: "my legs are swollen" HPI: Patient is a 41 year old male with PMHx of morbid obesity who presented to the ED with complaint of 1 week of bilateral lower extremity edema and redness. Patient noticed one week ago that his legs started to become swollen and erythematous. Patient also complains of dry skin and itching of his legs. Per pt the swelling began in both legs at the same time. Patient complains of discomfort in his lower legs due to the swelling but denies pain. Patient states that he is currently homeless and "lost everything" one month ago but patient would not specify what events happened. Per patient, he is living on the streets and has been sitting for the past 8 days. Patient has not been able to lay down or stretch his legs. Patient is normally ambulatory and states that he walks slowly without assistance. René has not seen a PMD in many years and does not take any medications. Patient denies history of heart disease or diabetes and states that he has never been hospitalized for this problem in the past. Denies fever, chills, nausea, vomiting, chest pain, shortness of breath, recent illness, cough, calf pain, palpitations, dizziness, headache, change in vision, focal weakness, back pain and recent travel." Patient admitted to r/o CHF, DVTS. Portable chest XRay performed showed mild venous congestion, patchy bibasilar airspace opacities, right hilar prominence. Venous Doppler of bilateral lower extremities showed no evidence of deep or superficial vein thrombosis of either lower extremity for the common femoral, femoral, popliteal, and great saphenous veins; normal valve function was noted on both sides. 2D ECHO with Doppler showed poor ECHO window, normal size and wall thickness of left ventricle, normal left ventricle function, normal LVEF ( 65%), normal left ventricle segmental wall motion, normal left ventricular diastolic function. Diuresis on Lasix 40mg IV BID was started in ED, and switched to Lasix 40mg IV q8h the next day and trialed on Lasix 40mg PO q8h. Once on floor, potentiated by Metolazone 5mg PO q8h Morning weight via bed scale upon discharge is 445.3 lbs vs 494 lbs on 03/01/17 on admission. Electrolytes replenished as needed as indicated by daily labs. Motrin 400mg PO q6h prn was given for pain management. Wound care was consulted for venous stasis dermatitis. Blood culture showed no growth after 4 days with no leukocytosis or sign of infection throughout hospital stay. Smoking cessation counseling was provided for tobacco use and started on heart healthy diet per windrower operator recommendation. Patient was on Protonix 40mg PO daily and Lovenox 40mg SC daily prophylactically while in the hospital. This is a summary of the hospital course. Please see chart for full details. Discharge Exam - Head Exam Head Exam: ATRAUMATIC, NORMAL INSPECTION, NORMOCEPHALIC - Eye Exam Eye Exam: EOMI, Normal appearance, PERRL - ENT Exam ENT Exam: Mucous Membranes Moist - Neck Exam Neck exam: Full Rom, Normal Inspection - Respiratory Exam Respiratory Exam: Clear to PA & Lateral, NORMAL BREATHING PATTERN, UNREMARKABLE. absent: Rales, Rhonchi, Wheezes, Stridor - Cardiovascular Exam Cardiovascular Exam: REGULAR RHYTHM, RRR. absent: Gallop, Rubs, Systolic Murmur - GI/Abdominal Exam GI & Abdominal Exam: Normal Bowel Sounds, Soft. absent: Distended, Firm, Guarding, Tenderness - Extremities Exam Extremities exam: normal inspection, pedal edema, tenderness Additional comments: minimal lower extremity and pedal edema minimal tenderness LE b/l - Back Exam Back exam: NORMAL INSPECTION. absent: rash noted - Neurological Exam Neurological exam: Alert, Oriented x3 - Psychiatric Exam Psychiatric exam: Normal Affect, Normal Mood - Skin Skin Exam: Intact, Normal Color, Warm Discharge Plan - Discharge Medications Prescriptions: Furosemide [Lasix] 40 mg PO DAILY #30 tablet Potassium Chloride [K-Dur 20] 10 meq PO DAILY #30 tab - Follow Up Plan Condition: STABLE Disposition: HOME/ ROUTINE Instructions: Furosemide (By mouth), Potassium Chloride (By mouth), Stasis Dermatitis (DC) Additional Instructions: Patient stable for discharge as per Dr. De La Cruz. Patient to establish care with a PMD. Patient should follow up with the [facility] within one week. Patient to call Dr. De La Cruz's office with any problems . Patient to follow up with outpatient psych clinic- [facility] [phone] or [phone]. Patient to take the following medications: Lasix 40 mg once daily Kdur 10mcg once daily If symptoms return or worsen please return to ER Immediately. Referrals: Carson De La Cruz Jr., MD [Medical Doctor] -
== END 2017-03-06 16:10 | disposition home or self-care (01) ==
LOC: C.ER 06:00 → C.9E 11:29 → C.3T 12:01 → INTOOBSV 03-02 19:50 → OBSVTOIN 03-02 19:50
PROVIDERS: ADMIT Internal Medicine; ATTEND Internal Medicine
DX: I87.2 Venous insufficiency (chronic) (peripheral) (principal); E87.6 Hypokalemia; Z68.43 Body mass index [BMI] 50.0-59.9, adult; E83.39 Other disorders of phosphorus metabolism; E66.01 Morbid (severe) obesity due to excess calories; F17.210 Nicotine dependence, cigarettes, uncomplicated; Z59.0 Homelessness
CPT/HCPCS: 36415; 71010; 80053; 80061; 81001; 83735; 84100; 85025; 87040; 93306; 93970; 97116; 97161; 97165; 97530; 99285; G0378; G8978; G8979; G8980; G8987; G8988; J1650; J1940

== ENCOUNTER 2017-03-07 19:41 | Inpatient (IN) | payer OTHER ==
[2017-03-07] MEDS ORDERED: Sodium Chloride 0.9% 1,000 ML IV ONE (20:27)
--- NOTE | 2017-03-07 20:35 | C.PDOC ---
History Of Present Illness 41 y/o male presents to ED with complaints of "not feeling well" with associated cramping pain in the abdominal wall and muscles on his back pain. Patient is homeless and does not stay in a nursing home. Patient was discharged yesterday after admission for peripheral edema and stasis dermatitis. He was treated with Lasix and Potassium. The swelling in his legs improved. He had a normal cardiac work up. No other complaints at this time. Time Seen by Provider: 03/07/17 20:21 Chief Complaint (Nursing): Medical Clearance History Per: Patient History/Exam Limitations: no limitations Onset/Duration Of Symptoms: Hrs Current Symptoms Are (Timing): Still Present Past Medical History Reviewed: Historical Data, Nursing Documentation, Vital Signs Vital Signs: Last Vital Signs Temp 98.6 F 03/07/17 20:03 Pulse 98 H 03/07/17 20:03 Resp 18 03/07/17 20:03 BP 144/92 H 03/07/17 20:03 Pulse Ox 95 03/07/17 22:06 - Medical History PMH: Peripheral Edema Other PMH: Stasis dermatitis Other Surgeries: elbow surgery 30 years ago Family History: States: No Known Family Hx - Social History Hx Tobacco Use: Yes Hx Alcohol Use: No Hx Substance Use: No - Immunization History Hx Tetanus Toxoid Vaccination: No Hx Influenza Vaccination: No Hx Pneumococcal Vaccination: No Review Of Systems Except As Marked, All Systems Reviewed And Found Negative. Constitutional: Negative for: Fever, Chills Cardiovascular: Negative for: Chest Pain Gastrointestinal: Positive for: Abdominal Pain. Negative for: Nausea, Vomiting , Diarrhea Musculoskeletal: Positive for: Back Pain Skin: Negative for: Rash Physical Exam - Physical Exam Appears: Non-toxic, No Acute Distress Skin: Normal Color, Warm Head: Atraumatic, Normacephalic Oral Mucosa: Dry Neck: Normal, Normal ROM Chest: Symmetrical Cardiovascular: Rhythm Regular, No Murmur Respiratory: Normal Breath Sounds, No Rales, No Rhonchi, No Wheezing Gastrointestinal/Abdominal: Normal Exam, Bowel Sounds, Soft, No Tenderness, Other (Morbidly obese) Extremity: Pedal Edema (+1 pedal edema on lower extremities), Capillary Refill ( <2 seconds), Swelling (mild swelling of legs bilateral) Extremity: Bilateral: Atraumatic, No Pedal Edema, Normal Color And Temperature, Normal ROM Pulses: Left Carotid: Normal, Right Carotid: Normal Neurological/Psych: Oriented x3, Normal Speech, Normal Cognition, Normal Motor, Normal Sensation, Normal Reflexes ED Course And Treatment - Laboratory Results Result Diagrams: 03/07/17 21:21 03/07/17 21:21 Lab Interpretation: Abnormal (BUN 54 Cr 3.0 significantly increased compared to 2 days ago.) O2 Sat by Pulse Oximetry: 95 (RA) Pulse Ox Interpretation: Normal Reevaluation Time: 22:09 Reassessment Condition: Unchanged - Physician Consult Information Time Consulting Physician Contacted: 22:09 Physician Contacted: Carson De La Cruz Jr. Outcome Of Conversation: Patient to be readmitted for acute renal failure. Disposition - Disposition Disposition: HOSPITALIZED Disposition Time: 22:10 Condition: STABLE - POA Present On Arrival: None - Clinical Impression Clinical Impression: Acute renal failure - Scribe Statement The provider has reviewed the documentation as recorded by the Hilaryibgarret Bashir All medical record entries made by the Hilaryibgarret were at my direction and personally dictated by me. I have reviewed the chart and agree that the record accurately reflects my personal performance of the history, physical exam, medical decision making, and the department course for this patient. I have also personally directed, reviewed, and agree with the discharge instructions and disposition.
[2017-03-07 21:25] LABS: BASO # 0.1 K/uL (0.0-0.2); BASO % 0.6 % (0.0-2.0); EOS # 0.1 K/uL (0.0-0.7); EOS % 0.7 % (0.0-4.0); HEMOGLOBIN 15.6 g/dL (12.0-18.0); LYMPH # 1.4 K/uL (1.0-4.3); LYMPH % 17.1 % (20.0-40.0); MEAN CELL VOLUME 89.2 fL (80.0-94.0); MEAN CORPUSCULAR HEMOGLOBIN 29.7 pg (27.0-31.0); MEAN CORPUSCULAR HGB CONC 33.3 g/dL (33.0-37.0); MEAN PLATELET VOLUME 8.9 fL (7.2-11.7); MONO # 1.1 K/uL (0.0-0.8); MONO % 13.4 % (0.0-10.0); NEUT # 5.6 K/uL (1.8-7.0); NEUT % 68.2 % (50.0-75.0); NRBC % 0.1 % (0.0-2.0); RBC 5.26 Mil/uL (4.40-5.90); RED CELL DISTRIBUTION WIDTH 13.3 % (11.5-14.5); WHITE BLOOD COUNT 8.2 K/uL (4.8-10.8)
[2017-03-07 21:32] LABS: ALBUMIN 4.5 g/dL (3.5-5.0)
[2017-03-07 21:35] LABS: ALB/GLOB RATIO 1.1 (1.0-2.1)
[2017-03-07 21:36] LABS: CALCIUM 9.2 mg/dl (8.6-10.4); MAGNESIUM 2.4 mg/dL (1.6-2.3)
--- NOTE | 2017-03-07 22:11 | CP.PCM.HP ---
History of Present Illness - History of Present Illness History of Present Illness: Medicine Note for Dr. De La Cruz CC: "I don't feel good" HPI: 41M with PMHx of morbid obesity who presented to the ED with complaint of generalized fatigue, muscle cramps. Patient reports he was just discharged x1 ago and was given prescriptions for water pill and potassium. He has only been taking the potassium pill. He reports today he woke up and felt total muscle cramps. He did not feel well and was concerned. He admits to feeling dry: dry mouth, very thirsty. Admitted to headache. Denies fever, chills, nausea, vomiting, chest pain, shortness of breath, recent illness, cough, calf pain, palpitations, dizziness, change in vision, focal weakness, back pain. PMHx: Venous Chronic Stasis dermatitis, Bilateral LE edema, Tobacco Use Disorder , morbid obesity Surgical Hx: left broken elbow repair (30 years ago) Meds: none Allergies: No known drug allergies Social Hx: Denies EtOH use; smokes tobacco 1/2 ppd for 25 years; Denies illicit drug use. Currently homeless and unemployed. Family Hx: Reviewed and non-contributory Present on Admission - Present on Admission Any Indicators Present on Admission: No Past Patient History - Past Medical History & Family History Past Medical History?: No - Past Social History Smoking Status: Light Smoker < 10 Cigarettes Daily - CARDIAC Hx Peripheral Edema: Yes - MUSCULOSKELETAL/RHEUMATOLOGICAL Hx Falls: No - PSYCHIATRIC Hx Substance Use: No - SURGICAL HISTORY Hx Surgeries: Yes Hx Musculoskeletal Surgery: Yes (left arm) - ANESTHESIA Hx Anesthesia: Yes Hx Anesthesia Reactions: No Meds Allergies/Adverse Reactions: Allergies Allergy/AdvReac Type Severity Reaction Status Date / Time No Known Allergies Allergy Verified 03/07/17 20:12 Physical Exam - Constitutional Appears: No Acute Distress - Head Exam Head Exam: NORMAL INSPECTION, NORMOCEPHALIC - Eye Exam Eye Exam: EOMI, Normal appearance, PERRL Pupil Exam: NORMAL ACCOMODATION - ENT Exam ENT Exam: Mucous Membranes Dry - Neck Exam Neck exam: Positive for: Normal Inspection - Respiratory Exam Respiratory Exam: Clear to Auscultation Bilateral, NORMAL BREATHING PATTERN. absent: Wheezes - Cardiovascular Exam Cardiovascular Exam: Tachycardia - GI/Abdominal Exam GI & Abdominal Exam: Normal Bowel Sounds, Soft - Extremities Exam Extremities exam: Positive for: normal inspection, pedal edema, pedal pulses present. Negative for: tenderness - Neurological Exam Neurological exam: Alert, CN II-XII Intact, Oriented x3 - Skin Skin Exam: Dry, Intact, Normal Color, Warm Results - Vital Signs Recent Vital Signs: Last Vital Signs Temp 98.6 F 03/07/17 20:03 Pulse 98 H 03/07/17 20:03 Resp 18 03/07/17 20:03 BP 144/92 H 03/07/17 20:03 Pulse Ox 95 03/07/17 22:09 - Labs Result Diagrams: 03/07/17 21:21 03/07/17 21:21 Labs: Laboratory Results - last 24 hr 03/07/17 03/07/17 21:21 21:21 WBC 8.2 D RBC 5.26 Hgb 15.6 Hct 46.9 MCV 89.2 MCH 29.7 MCHC 33.3 RDW 13.3 Plt Count 286 MPV 8.9 Neut % (Auto) 68.2 Lymph % (Auto) 17.1 [place] % (Auto) 13.4 H Eos % (Auto) 0.7 Baso % (Auto) 0.6 Neut # 5.6 Lymph # 1.4 [place] # 1.1 H Eos # 0.1 Baso # 0.1 Sodium 133 Potassium 3.9 Chloride 85 L Carbon Dioxide 35 H Anion Gap 17 BUN 54 H Creatinine 3.0 H Est GFR ( Amer) 28 Est GFR (Non-Af Amer) 23 Random Glucose 136 H Calcium 9.2 Magnesium 2.4 H Total Bilirubin 0.8 AST 43 ALT 70 Alkaline Phosphatase 78 Total Protein 8.5 H Albumin 4.5 Globulin 4.0 H Albumin/Globulin Ratio 1.1 Assessment & Plan - Assessment and Plan (Free Text) Assessment: 41M with PMHx of morbid obesity who presented to the ED with complaint of generalized fatigue, muscle cramps. Plan: Acute Renal Failure * Baseline BUN/CRE: 20/1.2 * BUN/CRE on admission: 54/3.0 * NS @ 175cc/hr * F/U UA, CPK Venous Stasis Dermatitis * Apply A&E Bilateral Lower Extremity Edema * Venous Duplex Scan Lower Extremity Artery Bilaterally[03/01]: Right & Left: - No evidence of deep or superficial thrombosis of right or left lower extremity for common femoral vein, femoral vein. * CXR: Unchanged from CXR on 03/01/17 * Echocardiogram [03/01]: normal size and left ventricular function, normal ejection fraction * Diurectics on hold * Motrin 400mg PO q6h prn mild pain * Patient was 494 lbs on 03/01, 480 lbs on 03/03, 03/07 he is 480lbs * Monitor I/Os Tobacco Use * Smoking cessation counseling * Nicotine Patch Morbid Obesity * Lipid Panel [03/02]: WNL * Heart healthy diet with fluid restriction Prophylactic Measures * GI PPX: Protonix 40mg PO daily * DVT PPX: Lovenox 30mg SC daily (renally dosed), SCDs contraindicated due to LE edema * PT/OT eval to assess ambulation * line up worker evaluation for homelessness * To see outpatient psych clinic- [facility] [phone] or [phone] Reggie Lyons DO, PGY-1
[2017-03-07] MEDS ORDERED: Sodium Chloride 0.9% 1,000 ML IV SCH ×2 (22:30→23:08)
[2017-03-08 00:29] LABS: SQUAMOUS EPITHIAL < 1 /hpf (0-5); URINE BILIRUBIN NEGATIVE (NEGATIVE); URINE BLOOD NEGATIVE (NEGATIVE); URINE CLARITY Hazy (Clear); URINE COLOR Yellow (YELLOW); URINE GLUCOSE (UA) NORMAL (Normal); URINE LEUKOCYTE ESTERASE NEG Leu/uL (Negative); URINE NITRATE NEGATIVE (NEGATIVE); URINE PROTEIN NEGATIVE (NEGATIVE)
[2017-03-08 01:30] VITALS: RESP 20
[2017-03-08 09:00] LABS: BASO % 0.7 % (0.0-2.0); EOS # 0.1 K/uL (0.0-0.7); EOS % 2.4 % (0.0-4.0); HEMOGLOBIN 14.4 g/dL (12.0-18.0); LYMPH # 1.8 K/uL (1.0-4.3); LYMPH % 29.8 % (20.0-40.0); MEAN CELL VOLUME 89.2 fL (80.0-94.0); MEAN CORPUSCULAR HEMOGLOBIN 29.9 pg (27.0-31.0); MEAN CORPUSCULAR HGB CONC 33.5 g/dL (33.0-37.0); MEAN PLATELET VOLUME 9.2 fL (7.2-11.7); MONO # 0.7 K/uL (0.0-0.8); MONO % 11.7 % (0.0-10.0); NEUT # 3.3 K/uL (1.8-7.0); NEUT % 55.4 % (50.0-75.0); NRBC % 0.1 % (0.0-2.0); RBC 4.82 Mil/uL (4.40-5.90); RED CELL DISTRIBUTION WIDTH 13.2 % (11.5-14.5); WHITE BLOOD COUNT 5.9 K/uL (4.8-10.8)
[2017-03-08 09:04] LABS: ALBUMIN 3.8 g/dL (3.5-5.0)
[2017-03-08 09:06] LABS: GFR AFRICAN-AMERICAN > 60; GFR NON-AFRICAN AMERICAN 52
[2017-03-08 09:07] LABS: ALB/GLOB RATIO 1.1 (1.0-2.1); ALT/SGPT 66 U/L (21-72); AST/SGOT 36 U/L (17-59); BLOOD UREA NITROGEN 42 mg/dL (9-20); CALCIUM 8.5 mg/dl (8.6-10.4); MAGNESIUM 2.2 mg/dL (1.6-2.3)
[2017-03-08] MEDS ORDERED: Potassium Chloride 20 mEq ER Tab PO STA ×2 (09:42→12:22)
--- NOTE | 2017-03-08 09:47 | CP.PCM.PN ---
<Faith Youngblood - Last Filed: 03/08/17 18:16> Subjective - Date & Time of Evaluation Date of Evaluation: 03/08/17 Time of Evaluation: 08:00 - Subjective Subjective: PGY1- Medicine Note- Dr. De La Cruz's Service Patient seen and examined at bedside and in no acute distress. Patient says his legs are still causing him a lot of pain. Patient is unhappy with what was brought to him for breakfast saying it was too bland and dry. Patient denies headache, chest pain, palpitations, abdominal pain, nausea, vomiting, constipation, diarrhea. Objective - Vital Signs/Intake and Output Vital Signs (last 24 hours): Temp Pulse Resp BP Pulse Ox 97.7 F 81 20 139/90 97 03/08/17 08:06 03/08/17 08:06 03/08/17 08:06 03/08/17 08:06 03/08/17 08:06 - Medications Medications: Current Medications Enoxaparin Sodium (Lovenox) 30 mg SC DAILY [facility] Sodium Chloride (Sodium Chloride 0.9%) 1,000 mls @ 175 mls/hr IV .Q5H43M [facility] Last Admin: 03/07/17 23:30 Dose: 175 mls/hr Ibuprofen (Motrin Tab) 400 mg PO Q6H PRN PRN Reason: Pain, moderate (4-7) Nicotine (Nicoderm Cq) 1 patch TD DAILY [facility] Ondansetron HCl (Zofran Inj) 4 mg IVP Q6 PRN PRN Reason: Nausea/Vomiting Pantoprazole Sodium (Protonix Ec Tab) 40 mg PO DAILY [facility] Pneumococcal Polyvalent Vaccine (Pneumovax 23 Vaccine) 0.5 ml IM .ONCE ONE Stop: 03/10/17 10:01 Potassium Chloride (K-Dur 20 Meq Er Tab) 40 meq PO STAT STA Stop: 03/08/17 09:43 Vitamin A (Vitamin A & D Oint Ud Foilpak) 1 ea TOP BID [facility] - Labs Labs: 03/08/17 08:42 03/08/17 08:42 - Constitutional Appears: Well, Non-toxic, No Acute Distress - Head Exam Head Exam: ATRAUMATIC, NORMAL INSPECTION, NORMOCEPHALIC - Eye Exam Eye Exam: EOMI, Normal appearance, PERRL - ENT Exam ENT Exam: Mucous Membranes Moist - Neck Exam Neck Exam: Full ROM - Respiratory Exam Respiratory Exam: Clear to Ausculation Bilateral, NORMAL BREATHING PATTERN. absent: Rales, Rhonchi, Wheezes, Respiratory Distress, Stridor - Cardiovascular Exam Cardiovascular Exam: REGULAR RHYTHM, RRR. absent: Gallop, Rubs, Murmur - GI/Abdominal Exam GI & Abdominal Exam: Soft, Normal Bowel Sounds. absent: Distended, Firm, Guarding, Rigid - Extremities Exam Extremities Exam: Pedal Edema, Tenderness Additional comments: erythematous and edematous legs bilaterally - Back Exam Back Exam: NORMAL INSPECTION - Neurological Exam Neurological Exam: Alert, Awake, Oriented x3 - Psychiatric Exam Psychiatric exam: Agitated, Normal Affect, Normal Mood - Skin Skin Exam: Intact, Warm Additional comments: erythematous and edematous lower extremities Assessment and Plan - Assessment and Plan (Free Text) Assessment: Acute Renal Failure * BUN/CRE on 03/08: 42/1.5 * Baseline BUN/CRE: 20/1.2 * BUN/CRE on admission: 54/3.0 * NS @ 175cc/hr changed to NS @ 200 cc/ hr with 40 mcg K on 03/08 * UA negative * total creatinine kinase: 178 Hypokalemia * 03/08: K 2.9 * Kdur 40mcg given * NS @ 200 cc/ hr with 40 mcg K Venous Stasis Dermatitis * Apply A&E Bilateral Lower Extremity Edema * Venous Duplex Scan Lower Extremity Artery Bilaterally[03/01]: Right & Left: - No evidence of deep or superficial thrombosis of right or left lower extremity for common femoral vein, femoral vein. 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 - Last Filed: 03/10/17 10:26> Objective - Vital Signs/Intake and Output Vital Signs (last 24 hours): Temp Pulse Resp BP Pulse Ox 98 F 70 20 120/80 99 03/10/17 10:13 03/10/17 10:13 03/10/17 10:13 03/10/17 10:13 03/10/17 10:13 Intake and Output: 03/10/17 03/10/17 06:59 18:59 Intake Total 1600 Balance 1600 - Medications Medications: Current Medications Enoxaparin Sodium (Lovenox) 30 mg SC DAILY [facility] Last Admin: 03/10/17 10:16 Dose: 30 mg Sodium Chloride (Sodium Chloride 0.9%) 1,000 mls @ 100 mls/hr IV .Q10H [facility] Last Admin: 03/10/17 06:10 Dose: 100 mls/hr Ibuprofen (Motrin Tab) 400 mg PO Q6H PRN PRN Reason: Pain, moderate (4-7) Nicotine (Nicoderm Cq) 1 patch TD DAILY [facility] Last Admin: 03/10/17 10:15 Dose: 1 patch Ondansetron HCl (Zofran Inj) 4 mg IVP Q6 PRN PRN Reason: Nausea/Vomiting Pantoprazole Sodium (Protonix Ec Tab) 40 mg PO DAILY [facility] Last Admin: 03/10/17 10:16 Dose: 40 mg Vitamin A (Vitamin A & D Oint Ud Foilpak) 1 ea TOP BID [facility] Last Admin: 03/09/17 17:53 Dose: Not Given - Labs Labs: 03/10/17 07:11 03/10/17 07:11 Attending/Attestation - Attestation I have personally seen and examined this patient.: Yes I have fully participated in the care of the patient.: Yes I have reviewed all pertinent clinical information, including history, physical exam and plan: Yes Notes (Text): 03/10/17 10:26 Agree with resident note and findings
--- NOTE | 2017-03-08 10:16 | RAD ---
HISTORY: Acute renal failure COMPARISON: No prior. FINDINGS: LUNGS: Mild venous congestion. Mild bilateral hilar prominence. PLEURA: No significant pleural effusion identified, no pneumothorax apparent. CARDIOVASCULAR: Normal. OSSEOUS STRUCTURES: No significant abnormalities. VISUALIZED UPPER ABDOMEN: Normal. OTHER FINDINGS: None. IMPRESSION: Mild venous congestion. Mild bilateral hilar prominence.
[2017-03-08] MEDS: Enoxaparin 30 mg Syringe SC SCH (12:27)
[2017-03-08] MEDS: Vitamins A & D Oint UD Foilpak TOP SCH ×2 (12:28→17:48)
[2017-03-08] MEDS: Pantoprazole 40 mg EC Tab PO SCH (12:28)
--- NOTE | 2017-03-09 00:29 | CARD ---
APPROVED REPORT EKG Measurement Heart [id number] <Conclusion> Normal sinus rhythm Left ventricular hypertrophy with QRS widening Nonspecific ST abnormality Prolonged QT Abnormal ECG
[2017-03-09 07:26] LABS: ALBUMIN 3.7 g/dL (3.5-5.0)
[2017-03-09 07:28] LABS: GFR AFRICAN-AMERICAN > 60; GFR NON-AFRICAN AMERICAN > 60
[2017-03-09 07:29] LABS: ALB/GLOB RATIO 1.1 (1.0-2.1); ALT/SGPT 59 U/L (21-72); AST/SGOT 37 U/L (17-59); BLOOD UREA NITROGEN 25 mg/dL (9-20)
[2017-03-09 07:30] LABS: CALCIUM 8.3 mg/dl (8.6-10.4)
[2017-03-09 07:36] LABS: BASO # 0.1 K/uL (0.0-0.2); EOS # 0.1 K/uL (0.0-0.7); EOS % 2.5 % (0.0-4.0); HEMOGLOBIN 13.6 g/dL (12.0-18.0); LYMPH # 1.8 K/uL (1.0-4.3); LYMPH % 34.4 % (20.0-40.0); MEAN CELL VOLUME 89.3 fL (80.0-94.0); MEAN CORPUSCULAR HEMOGLOBIN 29.7 pg (27.0-31.0); MEAN CORPUSCULAR HGB CONC 33.3 g/dL (33.0-37.0); MEAN PLATELET VOLUME 9.3 fL (7.2-11.7); MONO # 0.6 K/uL (0.0-0.8); MONO % 12.3 % (0.0-10.0); NEUT # 2.6 K/uL (1.8-7.0); NEUT % 49.8 % (50.0-75.0); NRBC % 0.1 % (0.0-2.0); RBC 4.57 Mil/uL (4.40-5.90); RED CELL DISTRIBUTION WIDTH 13.3 % (11.5-14.5); WHITE BLOOD COUNT 5.2 K/uL (4.8-10.8)
--- NOTE | 2017-03-09 10:13 | CP.PCM.PN ---
<Fatih Youngblood - Last Filed: 03/09/17 17:42> Subjective - Date & Time of Evaluation Date of Evaluation: 03/09/17 Time of Evaluation: 07:40 - Subjective Subjective: PGY1- Medicine Note- Dr. De La Cruz's Service Patient seen and examined at beside and is in no acute distress. Patient complains of bilateral leg pain. Patient denies chest pain, shortness of breath , abdominal pain, nausea, vomiting, constipation, diarrhea. Objective - Vital Signs/Intake and Output Vital Signs (last 24 hours): Temp Pulse Resp BP Pulse Ox 98.3 F 74 20 134/76 96 03/09/17 07:47 03/09/17 07:47 03/09/17 07:47 03/09/17 07:47 03/09/17 07:47 Intake and Output: 03/09/17 03/09/17 06:59 18:59 Intake Total 3603 Balance 3603 - Medications Medications: Current Medications Enoxaparin Sodium (Lovenox) 30 mg SC DAILY [facility] Last Admin: 03/08/17 12:27 Dose: 30 mg Potassium Chloride 40 meq/ (Sodium Chloride) 1,020 mls @ 200 mls/hr IV .Q5H6M [facility] Last Admin: 03/09/17 04:30 Dose: 200 mls/hr Ibuprofen (Motrin Tab) 400 mg PO Q6H PRN PRN Reason: Pain, moderate (4-7) Nicotine (Nicoderm Cq) 1 patch TD DAILY [facility] Last Admin: 03/08/17 12:28 Dose: Not Given Ondansetron HCl (Zofran Inj) 4 mg IVP Q6 PRN PRN Reason: Nausea/Vomiting Pantoprazole Sodium (Protonix Ec Tab) 40 mg PO DAILY [facility] Last Admin: 03/08/17 12:28 Dose: 40 mg Pneumococcal Polyvalent Vaccine (Pneumovax 23 Vaccine) 0.5 ml IM .ONCE ONE Stop: 03/10/17 10:01 Vitamin A (Vitamin A & D Oint Ud Foilpak) 1 ea TOP BID [facility] Last Admin: 03/08/17 17:48 Dose: 1 ea - Labs Labs: 03/09/17 07:00 03/09/17 07:00 - Constitutional Appears: Well, Non-toxic, No Acute Distress - Head Exam Head Exam: ATRAUMATIC, NORMAL INSPECTION, NORMOCEPHALIC - Eye Exam Eye Exam: EOMI, Normal appearance, PERRL - ENT Exam ENT Exam: Mucous Membranes Moist, Normal Exam - Neck Exam Neck Exam: Full ROM, Normal Inspection. absent: Lymphadenopathy - Respiratory Exam Respiratory Exam: Clear to Ausculation Bilateral, NORMAL BREATHING PATTERN. absent: Rales, Rhonchi, Wheezes, Respiratory Distress, Stridor - Cardiovascular Exam Cardiovascular Exam: REGULAR RHYTHM, RRR. absent: Gallop, Rubs, Murmur - GI/Abdominal Exam GI & Abdominal Exam: Soft, Normal Bowel Sounds. absent: Firm, Guarding, Rigid - Extremities Exam Extremities Exam: Full ROM, Pedal Edema. absent: Tenderness Additional comments: lower extremity edema - Back Exam Back Exam: NORMAL INSPECTION. absent: rash noted - Neurological Exam Neurological Exam: Alert, Awake, Oriented x3 - Psychiatric Exam Psychiatric exam: Normal Affect, Normal Mood - Skin Skin Exam: Erythema, Intact Additional comments: some lower extremity erythema b/l lower extremity edema Assessment and Plan - Assessment and Plan (Free Text) Assessment: Acute Renal Failure * Baseline BUN/CRE: 20/1.2 * BUN/CRE on admission: 54/3.0 * NS 100 cc/ hr (changed on 03/09) * UA: negative * total creatinine kinase 178 Venous Stasis Dermatitis * Apply A&E Bilateral Lower Extremity Edema * Venous Duplex Scan Lower Extremity Artery Bilaterally[03/01]: Right & Left: - No evidence of deep or superficial thrombosis of right or left lower extremity for common femoral vein, femoral vein. * CXR: Unchanged from CXR on 03/01/17 * Echocardiogram [03/01]: normal size and left ventricular function, normal ejection fraction * Diurectics on hold * Motrin 400mg PO q6h prn mild pain * Patient was 494 lbs on 03/01, 480 lbs on 03/03, 03/07 he is 480lbs * Monitor I/Os Tobacco Use * Smoking cessation counseling * Nicotine Patch Morbid Obesity * Lipid Panel [03/02]: WNL Depression * psych consulted, Dr. Haynes, help appreciated * denies SI/HI Prophylactic Measures * GI PPX: Protonix 40mg PO daily * DVT PPX: Lovenox 30mg SC daily (renally dosed), SCDs contraindicated due to LE edema * PT/OT eval to assess ambulation * property worker evaluation for homelessness * To see outpatient psych clinic- [facility] [phone] or [phone] <Carson De La Cruz Jr. - Last Filed: 03/10/17 10:28> Objective - Vital Signs/Intake and Output Vital Signs (last 24 hours): Temp Pulse Resp BP Pulse Ox 98 F 70 20 120/80 99 03/10/17 10:13 03/10/17 10:13 03/10/17 10:13 03/10/17 10:13 03/10/17 10:13 Intake and Output: 03/10/17 03/10/17 06:59 18:59 Intake Total 1600 Balance 1600 - Medications Medications: Current Medications Enoxaparin Sodium (Lovenox) 30 mg SC DAILY [facility] Last Admin: 03/10/17 10:16 Dose: 30 mg Sodium Chloride (Sodium Chloride 0.9%) 1,000 mls @ 100 mls/hr IV .Q10H [facility] Last Admin: 03/10/17 06:10 Dose: 100 mls/hr Ibuprofen (Motrin Tab) 400 mg PO Q6H PRN PRN Reason: Pain, moderate (4-7) Nicotine (Nicoderm Cq) 1 patch TD DAILY [facility] Last Admin: 03/10/17 10:15 Dose: 1 patch Ondansetron HCl (Zofran Inj) 4 mg IVP Q6 PRN PRN Reason: Nausea/Vomiting Pantoprazole Sodium (Protonix Ec Tab) 40 mg PO DAILY [facility] Last Admin: 03/10/17 10:16 Dose: 40 mg Vitamin A (Vitamin A & D Oint Ud Foilpak) 1 ea TOP BID [facility] Last Admin: 03/09/17 17:53 Dose: Not Given - Labs Labs: 03/10/17 07:11 03/10/17 07:11 Attending/Attestation - Attestation I have personally seen and examined this patient.: Yes I have fully participated in the care of the patient.: Yes I have reviewed all pertinent clinical information, including history, physical exam and plan: Yes Notes (Text): 03/10/17 10:28 Agree with resident note and findings
[2017-03-09] MEDS: Vitamins A & D Oint UD Foilpak TOP SCH ×2 (10:26→17:53)
[2017-03-09] MEDS: Pantoprazole 40 mg EC Tab PO SCH (10:26)
[2017-03-09] MEDS: Enoxaparin 30 mg Syringe SC SCH (10:26)
[2017-03-09] MEDS: Sodium Chloride 0.9% 1,000 ML IV SCH (18:00)
--- NOTE | 2017-03-10 00:26 | CP.PCM.PN ---
<MitchellIvana anayakayli E - Last Filed: 03/10/17 10:06> Subjective - Date & Time of Evaluation Date of Evaluation: 03/10/17 Time of Evaluation: 00:45 - Subjective Subjective: Medicine Note (PGY 1) : Dr. zhao's service Patient was seen and examined. Patient seemed upset and when prompted why, patient disregarded the question. Patient states that he has no new complaints. Patient denies chest pain, sob, nausea, vomiting and abdominal pain. Objective - Vital Signs/Intake and Output Vital Signs (last 24 hours): Temp Pulse Resp BP Pulse Ox 97.3 F L 69 20 141/81 95 03/09/17 15:00 03/09/17 15:00 03/09/17 15:00 03/09/17 15:00 03/09/17 15:00 Intake and Output: 03/09/17 03/10/17 18:59 06:59 Intake Total 45382 800 Balance 14970 800 - Medications Medications: Current Medications Enoxaparin Sodium (Lovenox) 30 mg SC DAILY [facility] Last Admin: 03/09/17 10:26 Dose: 30 mg Sodium Chloride (Sodium Chloride 0.9%) 1,000 mls @ 100 mls/hr IV .Q10H [facility] Last Admin: 03/09/17 18:00 Dose: 100 mls/hr Ibuprofen (Motrin Tab) 400 mg PO Q6H PRN PRN Reason: Pain, moderate (4-7) Nicotine (Nicoderm Cq) 1 patch TD DAILY [facility] Last Admin: 03/09/17 10:25 Dose: 1 patch Ondansetron HCl (Zofran Inj) 4 mg IVP Q6 PRN PRN Reason: Nausea/Vomiting Pantoprazole Sodium (Protonix Ec Tab) 40 mg PO DAILY [facility] Last Admin: 03/09/17 10:26 Dose: 40 mg Pneumococcal Polyvalent Vaccine (Pneumovax 23 Vaccine) 0.5 ml IM .ONCE ONE Stop: 03/10/17 10:01 Vitamin A (Vitamin A & D Oint Ud Foilpak) 1 ea TOP BID [facility] Last Admin: 03/09/17 17:53 Dose: Not Given - Labs Labs: 03/09/17 07:00 03/09/17 07:00 - Constitutional Appears: Well, No Acute Distress - Head Exam Head Exam: NORMAL INSPECTION, NORMOCEPHALIC - Eye Exam Eye Exam: EOMI, Normal appearance - ENT Exam ENT Exam: Mucous Membranes Moist, Normal Exam - Respiratory Exam Respiratory Exam: Clear to Ausculation Bilateral, NORMAL BREATHING PATTERN - Cardiovascular Exam Cardiovascular Exam: REGULAR RHYTHM, +S1, +S2 - GI/Abdominal Exam GI & Abdominal Exam: Soft, Normal Bowel Sounds - Extremities Exam Extremities Exam: Pedal Edema - Neurological Exam Neurological Exam: Alert, Awake, Oriented x3 - Psychiatric Exam Psychiatric exam: Flat Affect - Skin Skin Exam: Dry, Normal Color, Warm Assessment and Plan (1) Acute renal failure Assessment & Plan: Baseline BUN/CRE: 20/1.2 * BUN/CRE on admission: 54/3.0 * NS 100 cc/ hr (changed on 03/09) * UA: negative * total creatinine kinase 178 Status: Acute (2) Venous stasis dermatitis Assessment & Plan: Continue to apply A&E Status: Acute (3) Lower extremity edema Assessment & Plan: Venous Duplex Scan Lower Extremity Artery Bilaterally[03/01]: Right & Left: - No evidence of deep or superficial thrombosis of right or left lower extremity for common femoral vein, femoral vein. * CXR: Unchanged from CXR on 03/01/17 * Echocardiogram [03/01]: normal size and left ventricular function, normal ejection fraction * Diurectics on hold * Motrin 400mg PO q6h prn mild pain * Patient was 494 lbs on 03/01, 480 lbs on 03/03, 03/07 he is 480lbs * Monitor I/Os Status: Resolved (4) Tobacco use Assessment & Plan: * Smoking cessation counseling * Nicotine Patch Status: Acute (5) Morbid obesity Assessment & Plan: Lipid Panel [03/02]: WNL Status: Acute (6) Depression Assessment & Plan: psych consulted, Dr. Haynes, help appreciated * denies SI/HI Status: Acute (7) Prophylactic measure Assessment & Plan: * GI PPX: Protonix 40mg PO daily * DVT PPX: Lovenox 30mg SC daily (renally dosed), SCDs contraindicated due to LE edema * PT/OT eval to assess ambulation * hospitality workers evaluation for homelessness * To see outpatient psych clinic- [facility] [phone] or [phone] Status: Acute <Carson Zhao Jr. - Last Filed: 03/10/17 10:29> Objective - Vital Signs/Intake and Output Vital Signs (last 24 hours): Temp Pulse Resp BP Pulse Ox 98 F 70 20 120/80 99 03/10/17 10:13 03/10/17 10:13 03/10/17 10:13 03/10/17 10:13 03/10/17 10:13 Intake and Output: 03/10/17 03/10/17 06:59 18:59 Intake Total 1600 Balance 1600 - Medications Medications: Current Medications Enoxaparin Sodium (Lovenox) 30 mg SC DAILY [facility] Last Admin: 03/10/17 10:16 Dose: 30 mg Sodium Chloride (Sodium Chloride 0.9%) 1,000 mls @ 100 mls/hr IV .Q10H [facility] Last Admin: 03/10/17 06:10 Dose: 100 mls/hr Ibuprofen (Motrin Tab) 400 mg PO Q6H PRN PRN Reason: Pain, moderate (4-7) Nicotine (Nicoderm Cq) 1 patch TD DAILY [facility] Last Admin: 03/10/17 10:15 Dose: 1 patch Ondansetron HCl (Zofran Inj) 4 mg IVP Q6 PRN PRN Reason: Nausea/Vomiting Pantoprazole Sodium (Protonix Ec Tab) 40 mg PO DAILY [facility] Last Admin: 03/10/17 10:16 Dose: 40 mg Vitamin A (Vitamin A & D Oint Ud Foilpak) 1 ea TOP BID [facility] Last Admin: 03/09/17 17:53 Dose: Not Given - Labs Labs: 03/10/17 07:11 03/10/17 07:11 Attending/Attestation - Attestation I have personally seen and examined this patient.: Yes I have fully participated in the care of the patient.: Yes I have reviewed all pertinent clinical information, including history, physical exam and plan: Yes Notes (Text): 03/10/17 10:29 Agree with resident note and findings
[2017-03-10] MEDS: Sodium Chloride 0.9% 1,000 ML IV SCH ×3 (03:45→23:45)
[2017-03-10 07:21] LABS: BASO # 0.1 K/uL (0.0-0.2); BASO % 1.3 % (0.0-2.0); EOS # 0.1 K/uL (0.0-0.7); EOS % 3.2 % (0.0-4.0); HEMOGLOBIN 13.6 g/dL (12.0-18.0); LYMPH # 1.7 K/uL (1.0-4.3); MEAN CELL VOLUME 90.4 fL (80.0-94.0); MEAN CORPUSCULAR HEMOGLOBIN 29.9 pg (27.0-31.0); MEAN PLATELET VOLUME 9.1 fL (7.2-11.7); MONO # 0.6 K/uL (0.0-0.8); MONO % 12.5 % (0.0-10.0); NEUT # 2.1 K/uL (1.8-7.0); NRBC % 0.1 % (0.0-2.0); RBC 4.55 Mil/uL (4.40-5.90); RED CELL DISTRIBUTION WIDTH 13.3 % (11.5-14.5); WHITE BLOOD COUNT 4.5 K/uL (4.8-10.8)
[2017-03-10 07:27] LABS: ALBUMIN 3.5 g/dL (3.5-5.0)
[2017-03-10 07:30] LABS: AST/SGOT 38 U/L (17-59); GFR AFRICAN-AMERICAN > 60; GFR NON-AFRICAN AMERICAN > 60
[2017-03-10 07:31] LABS: ALB/GLOB RATIO 1.1 (1.0-2.1); ALT/SGPT 73 U/L (21-72); BLOOD UREA NITROGEN 18 mg/dL (9-20); CALCIUM 8.6 mg/dl (8.6-10.4); MAGNESIUM 1.9 mg/dL (1.6-2.3)
[2017-03-10] MEDS ORDERED: Pneumococcal 23-Valent Vaccine IM ONE (10:00)
[2017-03-10] MEDS: Pantoprazole 40 mg EC Tab PO SCH (10:16)
[2017-03-10] MEDS: Enoxaparin 30 mg Syringe SC SCH (10:16)
[2017-03-10] MEDS: Vitamins A & D Oint UD Foilpak TOP SCH ×2 (14:07→17:40)
[2017-03-10] MEDS ORDERED: Bisacodyl 5mg EC Tab PO ONE (22:30)
[2017-03-10] MEDS ORDERED: POLYETHYLENE GLYCOL 3350 17 GM/Dose PACKET PO ONE (22:45)
--- NOTE | 2017-03-11 00:11 | CP.PCM.PN ---
Subjective - Date & Time of Evaluation Date of Evaluation: 03/11/17 Time of Evaluation: 01:00 - Subjective Subjective: Medicine Note (PGY 1) : Dr. De La Cruz's service Patient was seen and examined at bedside, while rest comfortably in his bed watching TV. Patient had no acute events overnight and had no new complaints. Patient denies chest pain, sob, nausea, vomiting, fever, chills and fatigue but admits to mild constipation. Objective - Vital Signs/Intake and Output Vital Signs (last 24 hours): Temp Pulse Resp BP Pulse Ox 98.2 F 73 20 121/73 97 03/10/17 16:00 03/10/17 16:00 03/10/17 16:00 03/10/17 16:00 03/10/17 16:00 - Medications Medications: Current Medications Enoxaparin Sodium (Lovenox) 30 mg SC DAILY [facility] Last Admin: 03/10/17 10:16 Dose: 30 mg Sodium Chloride (Sodium Chloride 0.9%) 1,000 mls @ 100 mls/hr IV .Q10H [facility] Last Admin: 03/10/17 23:45 Dose: Not Given Ibuprofen (Motrin Tab) 400 mg PO Q6H PRN PRN Reason: Pain, moderate (4-7) Nicotine (Nicoderm Cq) 1 patch TD DAILY [facility] Last Admin: 03/10/17 10:15 Dose: 1 patch Ondansetron HCl (Zofran Inj) 4 mg IVP Q6 PRN PRN Reason: Nausea/Vomiting Pantoprazole Sodium (Protonix Ec Tab) 40 mg PO DAILY [facility] Last Admin: 03/10/17 10:16 Dose: 40 mg Vitamin A (Vitamin A & D Oint Ud Foilpak) 1 ea TOP BID [facility] Last Admin: 03/10/17 17:40 Dose: Not Given - Labs Labs: 03/10/17 07:11 03/10/17 07:11 - Constitutional Appears: Well, No Acute Distress - Head Exam Head Exam: ATRAUMATIC, NORMAL INSPECTION - Eye Exam Eye Exam: EOMI, Normal appearance - ENT Exam ENT Exam: Mucous Membranes Moist, Normal Exam - Respiratory Exam Respiratory Exam: Clear to Ausculation Bilateral, NORMAL BREATHING PATTERN - Cardiovascular Exam Cardiovascular Exam: REGULAR RHYTHM, +S1, +S2 - GI/Abdominal Exam GI & Abdominal Exam: Soft, Normal Bowel Sounds - Extremities Exam Extremities Exam: Pedal Edema - Neurological Exam Neurological Exam: Alert, Awake, Oriented x3 - Psychiatric Exam Psychiatric exam: Flat Affect - Skin Skin Exam: Dry, Normal Color, Warm Assessment and Plan (1) Acute renal failure Assessment & Plan: Improving Baseline BUN/CRE: 20/1.2 * BUN/CRE on admission: 54/3.0----> 18/0.9 (03/10/16) * NS 100 cc/ hr (changed on 03/09) * UA: negative * total creatinine kinase 178 Status: Acute (2) Venous stasis dermatitis Assessment & Plan: Continue to apply A&E Status: Acute (3) Lower extremity edema Assessment & Plan: Venous Duplex Scan Lower Extremity Artery Bilaterally[03/01]: Right & Left: - No evidence of deep or superficial thrombosis of right or left lower extremity for common femoral vein, femoral vein. * CXR: Unchanged from CXR on 03/01/17 * Echocardiogram [03/01]: normal size and left ventricular function, normal ejection fraction * Diurectics on hold * Motrin 400mg PO q6h prn mild pain * Patient was 494 lbs on 03/01, 480 lbs on 03/03, 03/07 he is 480lbs * Monitor I/Os Status: Resolved (4) Constipation Assessment & Plan: Dulcolax 10mg PO once Miralax 17gm PO once Status: Acute (5) Tobacco use Assessment & Plan: * Smoking cessation counseling * Nicotine Patch Status: Acute (6) Morbid obesity Assessment & Plan: Lipid Panel [03/02]: WNL Status: Acute (7) Depression Assessment & Plan: psych consulted, Dr. Haynes, help appreciated * denies SI/HI Status: Acute (8) Prophylactic measure Assessment & Plan: * GI PPX: Protonix 40mg PO daily * DVT PPX: Lovenox 30mg SC daily (renally dosed), SCDs contraindicated due to LE edema * PT/OT eval to assess ambulation * workers' compensation mediator evaluation for homelessness * To see outpatient psych clinic- [facility] [phone] or [phone] Status: Acute
[2017-03-11] MEDS: Pantoprazole 40 mg EC Tab PO SCH (09:46)
[2017-03-11] MEDS: Vitamins A & D Oint UD Foilpak TOP SCH ×2 (09:47→18:07)
[2017-03-11] MEDS: Sodium Chloride 0.9% 1,000 ML IV SCH ×2 (09:47→19:45)
[2017-03-11] MEDS: Enoxaparin 30 mg Syringe SC SCH (09:47)
[2017-03-11 11:12] LABS: BASO # 0.1 K/uL (0.0-0.2); BASO % 1.5 % (0.0-2.0); EOS # 0.2 K/uL (0.0-0.7); EOS % 3.1 % (0.0-4.0); HEMOGLOBIN 13.9 g/dL (12.0-18.0); LYMPH # 1.6 K/uL (1.0-4.3); LYMPH % 32.4 % (20.0-40.0); MEAN CELL VOLUME 89.6 fL (80.0-94.0); MEAN CORPUSCULAR HGB CONC 33.5 g/dL (33.0-37.0); MEAN PLATELET VOLUME 9.8 fL (7.2-11.7); MONO # 0.6 K/uL (0.0-0.8); MONO % 11.5 % (0.0-10.0); NEUT # 2.5 K/uL (1.8-7.0); NEUT % 51.5 % (50.0-75.0); NRBC % 0.1 % (0.0-2.0); RBC 4.64 Mil/uL (4.40-5.90); RED CELL DISTRIBUTION WIDTH 13.4 % (11.5-14.5); WHITE BLOOD COUNT 4.9 K/uL (4.8-10.8)
[2017-03-11 11:22] LABS: ALBUMIN 3.6 g/dL (3.5-5.0)
[2017-03-11 11:25] LABS: GFR AFRICAN-AMERICAN > 60; GFR NON-AFRICAN AMERICAN > 60
[2017-03-11 11:26] LABS: ALB/GLOB RATIO 1.1 (1.0-2.1); ALT/SGPT 85 U/L (21-72); AST/SGOT 47 U/L (17-59); BLOOD UREA NITROGEN 20 mg/dL (9-20); CALCIUM 9.2 mg/dl (8.6-10.4)
[2017-03-11 11:27] LABS: MAGNESIUM 1.8 mg/dL (1.6-2.3)
--- NOTE | 2017-03-11 13:00 | PCM.PSYCH ---
Initial Psychiatric Evaluation - Initial Psychiatric Evaluation Type of Admission: Voluntary Legal Status: Capacity Chief Complaint (in patient's own words): I am feeling depressed.' History of Present Illness and Precipitating Events: Patient is a 41 year old HM, unemployed and homeless, with PMHx of morbid obesity presented to the ED with complaint of 1 week of bilateral lower extremity edema and redness. Today pt was consulted for depressed mood. Patient remained superficially cooperative but guarded about the details. Patient states that he is currently homeless and "lost everything" one month ago but patient would not specify what events happened. Per patient, he is living on the streets and has been sitting for the past 8 days. Patient has not been able to lay down or stretch his legs. As a result legs became swollen. Patient reports depressed mood, and at times feelings of hopelessness and helplessness, anhidonia and poor sleep. However, he denies any suicidal ideation or homicidal ideation. He denies any auditory or visual hallucinations or any psychotic symptoms. He denies any other substance abuse. Current Medications: Active Medications Generic Name Dose Route Start Last Admin Trade Name Tyrell PRN Reason Stop Dose Admin Enoxaparin Sodium 30 mg 03/08/17 10:00 03/11/17 09:47 Lovenox SC 30 mg DAILY [facility] Administration Sodium Chloride 1,000 mls @ 100 mls/hr 03/09/17 17:45 03/11/17 09:47 Sodium Chloride 0.9% IV Not Given .Q10H [facility] Ibuprofen 400 mg 03/07/17 22:18 Motrin Tab PO Q6H PRN Pain, moderate (4-7) Nicotine 1 patch 03/08/17 10:03/11/17 09:48 Nicoderm Cq TD 1 patch DAILY [facility] Administration Ondansetron HCl 4 mg 03/07/17 22:21 Zofran Inj IVP Q6 PRN Nausea/Vomiting Pantoprazole Sodium 40 mg 03/08/17 10:00 03/11/17 09:46 Protonix Ec Tab PO 40 mg DAILY [facility] Administration Vitamin A 1 ea 03/08/17 10:00 03/11/17 09:47 Vitamin A & D Oint Ud Foilpak TOP 1 ea BID [facility] Administration Past Psychiatric History - Past Psychiatric History Previous Treatment History: None Pertinent Medical Hx (Current Medical&Sleep Prob, Allergies): Allergies Allergy/AdvReac Type Severity Reaction Status Date / Time No Known Allergies Allergy Verified 03/07/17 20:12 Furosemide [Lasix] 40 mg PO DAILY #30 tablet 03/06/17 Potassium Chloride [K-Dur 20] 10 meq PO DAILY #30 tab 03/06/17 Review of Systems - Review of Systems All systems: reviewed and no additional remarkable complaints except - Psychiatric Psychiatric: Anxiety, Irritability. absent: Suicidal Ideation Mental Status Examination - Personal Presentation Personal Presentation: Looks stated age - Affect Affect: Constricted, Depressed - Motor Activity Motor Activity: Calm - Reliability in Providing Information Reliability in Providing Information: Good - Speech Speech: Organized - Mood Mood: Depressed, Anxious - Formal Thought Process Formal Thought Process: No Impairment - Obsessions/Compulsions Obsessions: No Compulsions: No - Cognitive Functions Orientation: Person, Situation, Time Sensorium: Alert Attention/Concentration: Attentive Abstract Thinking: [place] Estimate of Intelligence: Below average Judgement: Imparied, as evidence by: Poor judgement, Imparied, as evidence by: Lack of insight into illness - Risk Risk: Diminished functioning - Strength & Assets Inventory Strength & Assets Inventory: Cooperative DSM 5 DX - DSM 5 DSM 5 Diagnosis: Adjustment disorder with depressed mood R/O Major depressive disorder moderate - Recommended/Plan of Treatment Treatment Recommendations and Plan of Treatment: Adjustment disorder with depressed mood R/O Major depressive disorder moderate Major depressive disorder moderate CBT Psychoeducation Supportive therapy, group therapy, individual therapy Zoloft 50 mg by mouth daily Trazodone 50 mg by mouth daily at bedtime Pt psychiatrically stable and can be discharged to [facility] - Smoking Cessation Smoking Cessation Initiated: No
[2017-03-12 06:59] LABS: BASO # 0.1 K/uL (0.0-0.2); BASO % 1.3 % (0.0-2.0); EOS # 0.2 K/uL (0.0-0.7); EOS % 3.3 % (0.0-4.0); HEMOGLOBIN 14.1 g/dL (12.0-18.0); LYMPH # 1.9 K/uL (1.0-4.3); LYMPH % 37.6 % (20.0-40.0); MEAN CELL VOLUME 89.8 fL (80.0-94.0); MEAN CORPUSCULAR HEMOGLOBIN 30.1 pg (27.0-31.0); MEAN CORPUSCULAR HGB CONC 33.6 g/dL (33.0-37.0); MEAN PLATELET VOLUME 9.9 fL (7.2-11.7); MONO # 0.4 K/uL (0.0-0.8); MONO % 8.2 % (0.0-10.0); NEUT # 2.5 K/uL (1.8-7.0); NEUT % 49.6 % (50.0-75.0); RBC 4.69 Mil/uL (4.40-5.90); RED CELL DISTRIBUTION WIDTH 13.3 % (11.5-14.5)
[2017-03-12 07:11] LABS: ALBUMIN 3.5 g/dL (3.5-5.0); ALT/SGPT 94 U/L (21-72); AST/SGOT 50 U/L (17-59); BLOOD UREA NITROGEN 18 mg/dL (9-20); CALCIUM 8.7 mg/dl (8.6-10.4); GFR AFRICAN-AMERICAN > 60; GFR NON-AFRICAN AMERICAN > 60; MAGNESIUM 1.7 mg/dL (1.6-2.3)
--- NOTE | 2017-03-12 07:11 | CP.PCM.PN ---
Subjective - Date & Time of Evaluation Date of Evaluation: 03/12/17 Time of Evaluation: 07:11 - Subjective Subjective: PGY-[address] De La Cruz Pt seen and examined at bedside. Nursing reports no acute events overnight. Objective - Vital Signs/Intake and Output Vital Signs (last 24 hours): Temp Pulse Resp BP Pulse Ox 97.5 F L 63 20 141/77 98 03/11/17 15:00 03/11/17 15:00 03/11/17 15:00 03/11/17 15:00 03/11/17 15:00 Intake and Output: 03/12/17 03/12/17 06:59 18:59 Intake Total 240 Balance 240 - Medications Medications: Current Medications Enoxaparin Sodium (Lovenox) 30 mg SC DAILY [facility] Last Admin: 03/11/17 09:47 Dose: 30 mg Sodium Chloride (Sodium Chloride 0.9%) 1,000 mls @ 100 mls/hr IV .Q10H [facility] Last Admin: 03/11/17 19:45 Dose: Not Given Ibuprofen (Motrin Tab) 400 mg PO Q6H PRN PRN Reason: Pain, moderate (4-7) Nicotine (Nicoderm Cq) 1 patch TD DAILY [facility] Last Admin: 03/11/17 09:48 Dose: 1 patch Ondansetron HCl (Zofran Inj) 4 mg IVP Q6 PRN PRN Reason: Nausea/Vomiting Pantoprazole Sodium (Protonix Ec Tab) 40 mg PO DAILY [facility] Last Admin: 03/11/17 09:46 Dose: 40 mg Sertraline HCl (Zoloft) 50 mg PO DAILY [facility] Last Admin: 03/11/17 14:33 Dose: Not Given Trazodone HCl (Desyrel) 50 mg PO HS [facility] Last Admin: 03/11/17 22:14 Dose: Not Given Vitamin A (Vitamin A & D Oint Ud Foilpak) 1 ea TOP BID [facility] Last Admin: 03/11/17 18:07 Dose: Not Given - Labs Labs: 03/12/17 06:37 03/11/17 10:59
[2017-03-12 08:44] VITALS: BP 104/70; PULSE 68; TEMP 97.7; O2SAT 97
[2017-03-12] MEDS: Enoxaparin 30 mg Syringe SC SCH (09:51)
[2017-03-12] MEDS: Pantoprazole 40 mg EC Tab PO SCH (09:53)
[2017-03-12] MEDS: Vitamins A & D Oint UD Foilpak TOP SCH (11:43)
--- NOTE | 2017-03-12 13:16 | CP.PCM.DIS ---
Provider - Provider Date of Admission: 03/07/17 22:01 Attending physician: Carson De La Cruz Jr, MD Primary care physician: Sal PMRoxana Consults: Psych: [place] Time Spent in preparation of Discharge (in minutes): 40 Diagnosis - Discharge Diagnosis (1) Acute renal failure Status: Acute Comment: Elevated Cr on admission (3.0). Baseline 1.2 (2) Morbid obesity Status: Chronic (3) Lower extremity edema Status: Acute Comment: Negative dopplers. Normal ECHO on prior admission. Heart healthy diet with fluid restriction Hospital Course - Lab Results Lab Results: Most Recent Lab Values WBC 5.0 K/uL (4.8-10.8) 03/12/17 06:37 RBC 4.69 Mil/uL (4.40-5.90) 03/12/17 06:37 Hgb 14.1 g/dL (12.0-18.0) 03/12/17 06:37 Hct 42.1 % (35.0-51.0) 03/12/17 06:37 MCV 89.8 fL (80.0-94.0) 03/12/17 06:37 MCH 30.1 pg (27.0-31.0) 03/12/17 06:37 MCHC 33.6 g/dL (33.0-37.0) 03/12/17 06:37 RDW 13.3 % (11.5-14.5) 03/12/17 06:37 Plt Count 216 K/uL (130-400) 03/12/17 06:37 MPV 9.9 fL (7.2-11.7) 03/12/17 06:37 Neut % (Auto) 49.6 % (50.0-75.0) L 03/12/17 06:37 Lymph % (Auto) 37.6 % (20.0-40.0) 03/12/17 06:37 Campbell % (Auto) 8.2 % (0.0-10.0) 03/12/17 06:37 Eos % (Auto) 3.3 % (0.0-4.0) 03/12/17 06:37 Baso % (Auto) 1.3 % (0.0-2.0) 03/12/17 06:37 Neut # 2.5 K/uL (1.8-7.0) 03/12/17 06:37 Lymph # 1.9 K/uL (1.0-4.3) 03/12/17 06:37 Campbell # 0.4 K/uL (0.0-0.8) 03/12/17 06:37 Eos # 0.2 K/uL (0.0-0.7) 03/12/17 06:37 Baso # 0.1 K/uL (0.0-0.2) 03/12/17 06:37 Sodium 136 mmol/L (132-148) 03/12/17 06:37 Potassium 4.0 mmol/L (3.6-5.2) 03/12/17 06:37 Chloride 97 mmol/L (98-107) L 03/12/17 06:37 Carbon Dioxide 29 mmol/L (22-30) 03/12/17 06:37 Anion Gap 14 (10-20) 03/12/17 06:37 BUN 18 mg/dL (9-20) 03/12/17 06:37 Creatinine 0.9 MG/DL (0.8-1.5) 03/12/17 06:37 Est GFR ( Amer) > 60 03/12/17 06:37 Est GFR (Non-Af Amer) > 60 03/12/17 06:37 Random Glucose 83 mg/dL (75-110) 03/12/17 06:37 Hemoglobin A1c 6.1 % (4.2-6.5) 03/08/17 08:42 Calcium 8.7 mg/dl (8.6-10.4) 03/12/17 06:37 Phosphorus 4.4 mg/dL (2.5-4.5) 03/12/17 06:37 Magnesium 1.7 mg/dL (1.6-2.3) 03/12/17 06:37 Total Bilirubin 0.7 mg/dL (0.2-1.3) 03/12/17 06:37 AST 50 U/L (17-59) 03/12/17 06:37 ALT 94 U/L (21-72) H 03/12/17 06:37 Alkaline Phosphatase 61 U/L (38-126) 03/12/17 06:37 Total Creatine Kinase 178 U/L (55-170) H 03/08/17 08:42 Total Protein 7.0 g/dL (6.3-8.3) 03/12/17 06:37 Albumin 3.5 g/dL (3.5-5.0) 03/12/17 06:37 Globulin 3.5 gm/dL (2.2-3.9) 03/12/17 06:37 Albumin/Globulin Ratio 1.0 (1.0-2.1) 03/12/17 06:37 Urine Color Yellow (YELLOW) 03/08/17 00:19 Urine Clarity Hazy (Clear) 03/08/17 00:19 Urine pH 5.0 (5.0-8.0) 03/08/17 00:19 Ur Specific [place] 1.018 (1.003-1.030) 03/08/17 00:19 Urine Protein Negative mg/dL (NEGATIVE) 03/08/17 00:19 Urine Glucose (UA) Normal mg/dL (Normal) 03/08/17 00:19 Urine Ketones Negative mg/dL (NEGATIVE) 03/08/17 00:19 Urine Blood Negative (NEGATIVE) 03/08/17 00:19 Urine Nitrate Negative (NEGATIVE) 03/08/17 00:19 Urine Bilirubin Negative (NEGATIVE) 03/08/17 00:19 Urine Urobilinogen 2.0 mg/dL (0.2-1.0) 03/08/17 00:19 Ur Leukocyte Esterase Neg Jovon/uL (Negative) 03/08/17 00:19 Urine WBC (Auto) 2 /hpf (0-5) 03/08/17 00:19 Urine RBC (Auto) 1 /hpf (0-3) 03/08/17 00:19 Ur Squamous Epith Cells < 1 /hpf (0-5) 03/08/17 00:19 - Hospital Course Hospital Course: On admission: CC: "I don't feel good" HPI: 41M with PMHx of morbid obesity who presented to the ED with complaint of generalized fatigue, muscle cramps. Patient reports he was just discharged x1 ago and was given prescriptions for water pill and potassium. He has only been taking the potassium pill. He reports today he woke up and felt total muscle cramps. He did not feel well and was concerned. He admits to feeling dry: dry mouth, very thirsty. Admitted to headache. Denies fever, chills, nausea, vomiting, chest pain, shortness of breath, recent illness, cough, calf pain, palpitations, dizziness, change in vision, focal weakness, back pain. PMHx: Venous Chronic Stasis dermatitis, Bilateral LE edema, Tobacco Use Disorder , morbid obesity Surgical Hx: left broken elbow repair (30 years ago) Meds: none Allergies: No known drug allergies Social Hx: Denies EtOH use; smokes tobacco 1/2 ppd for 25 years; Denies illicit drug use. Currently homeless and unemployed. Family Hx: Reviewed and non-contributory Hospital course: In the emergency department patient was admitted due to acute renal failure and was started on high rate IV fluids. Baseline Cr is 1.2, but on admission Cr was 3. On 03/07/17 patient received a chest x -ray that showed mild venous congestion and mild bilateral hilar prominence. Patient also received an electrocardiogram that showed normal sinus rhythm with left ventricular hypertrophy with QRS widening, nonspecific ST abnormality, prolonged QT and abnormal ECG. Pts Cr improved with fluids and cessation of diuretics. Pt morbidly obese, received counseling about weight and need for increased exercise and change in diet. Pt was maintained on heart healthy diet. On 03/11/17 psychiatry was consulted and patient was seen by Dr. Christ Haynes. Patient was diagnosed with an adjustment disorder with depressed mood. Dr. Haynes suggested CBT, psychoeducation, CBT, supportive, group and individual therapy. Dr. Haynes prescribed Zoloft and Trazodone at this time. Pt refused Zoloft/Trazadone at time of discharge, saying "once I get my housing situation changed, I'll feel better" This is a brief summary of events. For a complete course, refer to the medical record. Patient with noted clinical improvement and patient deemed medically stable for discharge as per Dr. De La Cruz. Patient should continue all medications listed below. - Date & Time of H&P Date of H&P: 03/07/17 Time of H&P: 22:11 Discharge Exam - Additional Findings Additional findings: Constitutional Appears: Well, No Acute Distress, LArge body habitus noted - Head Exam Head Exam: ATRAUMATIC, NORMAL INSPECTION - Eye Exam Eye Exam: EOMI, Normal appearance - ENT Exam ENT Exam: Mucous Membranes Moist, Normal Exam - Respiratory Exam Respiratory Exam: Clear to Ausculation Bilateral, NORMAL BREATHING PATTERN - Cardiovascular Exam Cardiovascular Exam: REGULAR RHYTHM, +S1, +S2 - GI/Abdominal Exam GI & Abdominal Exam: Soft, Normal Bowel Sounds - Extremities Exam Extremities Exam: Pedal Edema - Neurological Exam Neurological Exam: Alert, Awake, Oriented x3 - Psychiatric Exam Psychiatric exam: Flat Affect - Skin Skin Exam: Dry, Normal Color, Warm Discharge Plan - Discharge Medications Prescriptions: Furosemide [Lasix] 20 mg PO DAILY #30 tablet - Follow Up Plan Condition: STABLE Disposition: HOME/ ROUTINE Instructions: Furosemide (By mouth), Acute Kidney Injury (DC), Obesity (DC), Obesity (GEN) Additional Instructions: Patient stable for discharge per Dr. De La Cruz. Patient may resume his home medications. He denies need for refills. He has been prescribed the following medications: Lasix. Patient is make an appointment with their PMD, within one week of discharge for follow-up. It is also recommended he follow up with psychiatrist to continue treatment of his depression. Pt however is refusing to take Zoloft or trazadone , and does not want these prescriptions. He is advised to return to the emergency department if symptoms return or worsen. These instructions were given to the pt in [place]. Patient expressed verbal understanding of these instructions. Prescribed medications: Lasix 20mg, by mouth, daily (2 refills)
== END 2017-03-12 14:15 | disposition home or self-care (01) | DRG 316 ==
LOC: C.ER 19:41 → C.3T 22:01
PROVIDERS: ADMIT Internal Medicine; ATTEND Internal Medicine
DX: N17.9 Acute kidney failure, unspecified (principal); E87.6 Hypokalemia; I87.2 Venous insufficiency (chronic) (peripheral); F32.1 Major depressive disorder, single episode, moderate; F43.21 Adjustment disorder with depressed mood; K59.00 Constipation, unspecified; F17.210 Nicotine dependence, cigarettes, uncomplicated; E66.01 Morbid (severe) obesity due to excess calories; Z68.43 Body mass index [BMI] 50.0-59.9, adult; Z59.0 Homelessness

== ENCOUNTER 2017-03-19 05:12 | Emergency (ER) | payer OTHER ==
[2017-03-19 05:24] VITALS: TEMP 97.4
--- NOTE | 2017-03-19 06:24 | C.PDOC ---
History Of Present Illness <Tg,Hui A - Last Filed: 03/19/17 07:57> <Lester Mathew - Last Filed: 03/19/17 18:13> A 41 y/o M with a hx of venous stasis, c/o of chronic bilateral leg swelling and pain. Pt was recently evaluated 3 days ago here and was discharged home. Pt is homeless and has not taken his diuretics. Denies fever, chills, trauma, or any other complaints. (Lester Mathew) <Hui Mas Mamta - Last Filed: 03/19/17 07:57> History Per: Patient History/Exam Limitations: no limitations Onset/Duration Of Symptoms: Days, Persistent (Chronic) Current Symptoms Are (Timing): Still Present Severity: Mild Recent travel outside of the [place]: No Additional History Per: Patient <Lester Mathew - Last Filed: 03/19/17 18:13> Time Seen by Provider: 03/19/17 05:19 Chief Complaint (Nursing): Lower Extremity Problem/Injury Past Medical History Reviewed: Historical Data, Nursing Documentation, Vital Signs - Medical History PMH: Peripheral Edema Denies: Chronic Kidney Disease Family History: States: Unknown Family Hx - Social History Hx Tobacco Use: Yes Hx Alcohol Use: No Hx Substance Use: No - Immunization History Hx Tetanus Toxoid Vaccination: No Hx Influenza Vaccination: No Hx Pneumococcal Vaccination: No <Lester Mathew - Last Filed: 03/19/17 18:13> Vital Signs: Last Vital Signs Temp 97.4 F L 03/19/17 07:15 Pulse 67 03/19/17 07:15 Resp 20 03/19/17 07:15 BP 135/79 03/19/17 07:15 Pulse Ox 99 03/19/17 07:15 Review Of Systems Except As Marked, All Systems Reviewed And Found Negative. Constitutional: Negative for: Fever, Chills, Other (Trauma) Musculoskeletal: Positive for: Leg Pain (Bilateral leg pain, chronic) <Lester Mathew - Last Filed: 03/19/17 18:13> Physical Exam - Physical Exam Appears: Non-toxic, No Acute Distress, Other (Morbidly obese) Skin: Warm, Dry Head: Atraumatic, Normacephalic Cardiovascular: Rhythm Regular Respiratory: Normal Breath Sounds, No Rales, No Rhonchi, No Wheezing Extremity: Normal ROM, Pedal Edema (Bilateral leg edema with venous stasis), Capillary Refill (<2secs) Pulses: Left Dorsalis Pedis: Normal, Right Dorsalis Pedis: Normal Neurological/Psych: Oriented x3, Normal Motor, Normal Sensation, Other (No focal deficit) <Lester Mathew - Last Filed: 03/19/17 18:13> ED Course And Treatment - Laboratory Results Result Diagrams: 03/19/17 06:30 03/19/17 06:30 <Hui Mas - Last Filed: 03/19/17 07:57> - Laboratory Results Result Diagrams: 03/19/17 06:30 03/19/17 06:30 ECG: Interpreted By Me, Viewed By Me ECG Rhythm: Sinus Rhythm Interpretation Of ECG: LVH. No interval changes. Rate From EC O2 Sat by Pulse Oximetry: 98 (RA) Pulse Ox Interpretation: Normal <Lester Mathew - Last Filed: 03/19/17 18:13> Medical Decision Making <Hui Mas - Last Filed: 03/19/17 07:57> <Lester Mathew - Last Filed: 03/19/17 18:13> Medical Decision Making: Impression: A 41 y/o M with a hx of venous stasis, c/o of chronic bilateral leg swelling and pain. Plans: -EKG -Blood labs -CXR -IV fluids -Reassess 700 endorsed to day shift pending labs/final dispo (Lester Mathew) Disposition Counseled Patient/Family Regarding: Studies Performed, Diagnosis, Need For Followup - Disposition Disposition Time: 07:55 - POA Present On Arrival: None <Hui Mas - Last Filed: 03/19/17 07:57> <Lester Mathew - Last Filed: 03/19/17 18:13> - Disposition Referrals: Carson De La Cruz Jr., MD [Medical Doctor] - Disposition: HOME/ ROUTINE Condition: STABLE Additional Instructions: FOLLOW UP WITH YOUR DOCTOR IN 1-2 DAYS RETURN TO ER IF YOU HAVE ANY CONCERNING SYMPTOMS Instructions: Leg Edema (ED) Forms: General Discharge Instructions Print Language: [id number] - Clinical Impression Clinical Impression: Leg edema <Hui Mas - Last Filed: 03/19/17 07:57> - Scribe Statement The provider has reviewed the documentation as recorded by the Scribe <Lester Mathew - Last Filed: 03/19/17 18:13> - Scribe Statement Rusty jones All medical record entries made by the Scribe were at my direction and personally dictated by me. I have reviewed the chart and agree that the record accurately reflects my personal performance of the history, physical exam, medical decision making, and the department course for this patient. I have also personally directed, reviewed, and agree with the discharge instructions and disposition. (Lester Mathew) Addendum <Hui Mas - Last Filed: 03/19/17 07:57> <Lester Mathew - Last Filed: 03/19/17 18:13> Addendum: 03/19/17 07:57 Patient reassessed, sleeping comfortably, easily arousable. He denies current pain, chest pain, SOB. Blood work unremarkable, vitals WNL. LE edema chronic. Patient discharged home, instructed to take his duirectics regularly and follow up with PMD in 1-2 days. He understands he should return to ED if symptoms worsen. (Hui Mas)
[2017-03-19 06:43] LABS: INR 0.9; PROTHROMBIN TIME 9.7 SECONDS (9.7-12.2)
[2017-03-19 06:52] LABS: ALBUMIN 3.7 g/dL (3.5-5.0)
[2017-03-19 06:54] LABS: GFR AFRICAN-AMERICAN > 60; GFR NON-AFRICAN AMERICAN > 60
[2017-03-19 06:55] LABS: ALB/GLOB RATIO 1.1 (1.0-2.1); ALT/SGPT 64 U/L (21-72); AST/SGOT 38 U/L (17-59); BLOOD UREA NITROGEN 17 mg/dL (9-20); CALCIUM 8.6 mg/dl (8.6-10.4)
[2017-03-19 07:01] LABS: HEMOGLOBIN 13.1 g/dL (12.0-18.0); MEAN CELL VOLUME 89.4 fL (80.0-94.0); MEAN CORPUSCULAR HEMOGLOBIN 30.9 pg (27.0-31.0); MEAN CORPUSCULAR HGB CONC 34.6 g/dL (33.0-37.0); MEAN PLATELET VOLUME 9.7 fL (7.2-11.7); RBC 4.23 Mil/uL (4.40-5.90); RED CELL DISTRIBUTION WIDTH 13.7 % (11.5-14.5); WHITE BLOOD COUNT 7.7 K/uL (4.8-10.8)
[2017-03-19 07:04] LABS: B-TYPE NATRIURETIC PEPTIDE 40.1 pg/mL (0-450)
[2017-03-19 07:33] VITALS: BP 135/79; PULSE 67; RESP 20
[2017-03-19 09:02] LABS: EOS # 0.2 K/uL (0.0-0.7); LYMPH # 2.1 K/uL (1.0-4.3); MONO # 0.4 K/uL (0.0-0.8); NEUT # 4.4 K/uL (1.8-7.0)
[2017-03-19 18:13] VITALS: O2SAT 98
--- NOTE | 2017-03-21 09:01 | CARD ---
APPROVED REPORT EKG Measurement Heart [id number] MD [id number] <Conclusion> Normal sinus rhythm Incomplete right bundle branch block Minimal voltage criteria for LVH, may be normal variant Borderline ECG
== END 2017-03-19 08:11 | disposition home or self-care (01) ==
LOC: C.ER 05:12
DX: R60.0 Localized edema (principal)